=== PATIENT | male | born 1980 ===

== ENCOUNTER 2017-10-21 12:34 | Inpatient (IN) | payer OTHER ==
[2017-10-21 12:48] VITALS: BMI 27.1
--- NOTE | 2017-10-21 13:51 | C.PDOC ---
History Of Present Illness 37 y/o male present to the ED for evaluation of progressive RLQ pain for one week. He reports feeling chills. The patient denies any fever, nausea, vomiting , diarrhea or urinary symptoms. He also denies any recent travels. Time Seen by Provider: 10/21/17 13:14 Chief Complaint (Nursing): Abdominal Pain History/Exam Limitations: no limitations Onset/Duration Of Symptoms: Days Current Symptoms Are (Timing): Still Present Location Of Pain/Discomfort: RLQ Quality Of Discomfort: "Pain" Associated Symptoms: Chills. denies: Fever, Nausea, Vomiting, Diarrhea, Urinary Symptoms Recent travel outside of the [place]: No Past Medical History Reviewed: Historical Data, Nursing Documentation, Vital Signs Vital Signs: Last Vital Signs Temp 99.3 F 10/21/17 12:48 Pulse 80 10/21/17 12:48 Resp 18 10/21/17 12:48 BP 121/74 10/21/17 12:48 Pulse Ox 99 10/21/17 17:41 - Medical History PMH: No Chronic Diseases Surgical History: No Surg Hx Family History: States: Unknown Family Hx - Social History Hx Tobacco Use: Yes Hx Alcohol Use: Yes Hx Substance Use: No - Immunization History Hx Tetanus Toxoid Vaccination: No Hx Influenza Vaccination: No Hx Pneumococcal Vaccination: No Review Of Systems Except As Marked, All Systems Reviewed And Found Negative. Constitutional: Positive for: Chills. Negative for: Fever Gastrointestinal: Positive for: Abdominal Pain (RLQ). Negative for: Nausea, Vomiting, Diarrhea Physical Exam - Physical Exam Appears: Non-toxic, No Acute Distress Skin: Normal Color, Warm, Dry Head: Atraumatic, Normacephalic Eye(s): bilateral: Normal Inspection, PERRL, EOMI Ear(s): Bilateral: Normal Nose: Normal Oral Mucosa: Moist Chest: Symmetrical Cardiovascular: Rhythm Regular, No Murmur Respiratory: Normal Breath Sounds, No Rales, No Rhonchi, No Wheezing Gastrointestinal/Abdominal: Tenderness, No Guarding, No Rebound (To RLQ) Extremity: Bilateral: Atraumatic, Normal Color And Temperature, Normal ROM Neurological/Psych: Oriented x3, Normal Speech ED Course And Treatment - Laboratory Results Result Diagrams: 10/21/17 14:19 10/21/17 14:19 O2 Sat by Pulse Oximetry: 99 (RA) Pulse Ox Interpretation: Normal - CT Scan/US Abdomen & Pelvis Other Rad Studies (CT/US): Read By Radiologist, Radiology Report Reviewed CT/US Interpretation: IMPRESSION: Complicated perforated appendix with apparent distal abscess and regional inflammatory changes. Regional lymphadenopathy. Medical Decision Making Medical Decision Making: Assessment: Abdominal pain ( LQ) Plan: -CT Abd & Pelvis -CMP -Lipase -CBC -Morphine 2 mg -UA Disposition Discussed With Dr.: Harris Reeder Doctor Will See Patient In The: Hospital Counseled Patient/Family Regarding: Studies Performed, Diagnosis - Disposition Disposition: HOSPITALIZED Disposition Time: 17:18 Condition: FAIR - Clinical Impression Clinical Impression: Appendicitis - PA / PSYCHOLOGY DEPARTMENT CHAIR / Resident Statement MD/DO has reviewed & agrees with the documentation as recorded. - Scribe Statement The provider has reviewed the documentation as recorded by the Scribe (Hayde Mario) All medical record entries made by the Scribe were at my direction and personally dictated by me. I have reviewed the chart and agree that the record accurately reflects my personal performance of the history, physical exam, medical decision making, and the department course for this patient. I have also personally directed, reviewed, and agree with the discharge instructions and disposition.
[2017-10-21 14:22] LABS: BASO # 0.1 K/uL (0.0-0.2); BASO % 0.6 % (0.0-2.0); EOS % 0.2 % (0.0-4.0); HEMOGLOBIN 14.1 g/dL (12.0-18.0); LYMPH % 10.4 % (20.0-40.0); MEAN CORPUSCULAR HEMOGLOBIN 31.7 pg (27.0-31.0); MEAN CORPUSCULAR HGB CONC 35.2 g/dL (33.0-37.0); MEAN PLATELET VOLUME 8.2 fL (7.2-11.7); MONO # 0.7 K/uL (0.0-0.8); MONO % 7.2 % (0.0-10.0); NEUT # 8.1 K/uL (1.8-7.0); NEUT % 81.6 % (50.0-75.0); NRBC % 0.1 % (0.0-2.0); RBC 4.45 Mil/uL (4.40-5.90); RED CELL DISTRIBUTION WIDTH 13.3 % (11.5-14.5); WHITE BLOOD COUNT 9.9 K/uL (4.8-10.8)
[2017-10-21 14:30] LABS: SQUAMOUS EPITHIAL 1 /hpf (0-5); URINE BACTERIA RARE (<OCC); URINE BILIRUBIN NEGATIVE (NEGATIVE); URINE BLOOD 1+ (NEGATIVE); URINE CLARITY Hazy (Clear); URINE COLOR Amber (YELLOW); URINE GLUCOSE (UA) NORMAL (Normal); URINE LEUKOCYTE ESTERASE NEG Leu/uL (Negative); URINE PROTEIN 1+ mg/dL (NEGATIVE); URINE UROBILINOGEN NORMAL mg/dL (0.2-1.0)
[2017-10-21 14:35] LABS: ALB/GLOB RATIO 1.2 (1.0-2.1); ALBUMIN 4.6 g/dL (3.5-5.0); ALT/SGPT 117 U/L (21-72); AST/SGOT 27 U/L (17-59); BLOOD UREA NITROGEN 16 mg/dL (9-20); CALCIUM 9.3 mg/dl (8.6-10.4); GFR NON-AFRICAN AMERICAN > 60; LIPASE 23 U/L (23-300)
[2017-10-21] MEDS ORDERED: Iodixanol 320 mg/ml 150 ml Bottle IV ONE (15:42)
[2017-10-21] MEDS ORDERED: Piperacill/Tazo 3.375gm in Dex 3.375 GM/50 ML BAG IVPB STA (17:13)
[2017-10-21] MEDS ORDERED: Piperacillin/Tazobact 3.375 gm 100 ML IVPB ONE (17:49)
[2017-10-21 18:09] LABS: INR 1.2; PROTHROMBIN TIME 13.3 SECONDS (9.7-12.2)
--- NOTE | 2017-10-21 18:27 | CP.PCM.CON ---
History of Present Illness - History of Present Illness History of Present Illness: General surgery consult note for Dr. Huyen Jackson, PGY-2 Pt S & E at bedside at 1715. [facility] interpretor- Art #[id number] for Estonian. 37M w/no sig PMH consulted for RLQ ab pain x 1 week. Pt reports sudden onset of pain, radiates diffusely, baseline mild, but intermittently worsens, aggravated by changes in position. Tried Naproxen without alleviation. Admits to chills, slight dysuria. Denies N & V, fevers, diarrhea, constipation, hematuria, hematochezia, sore throat, chest pain, SOB, other complaints. In ED- CT abdomen w/findings of acute perforated complex appendicitis with abscess formation, 6 x 4.5 cm. Afebrile, no leukocytosis. PMH: Denies PSH: Denies All: NKDA SH: Admits to occasional ETOH use- 1-2 drinks/month, admits to occasional tobacco use- rare; denies illicit drug use FH: Non contributory PMD: Dr. Esparza Review of Systems - Review of Systems All systems: reviewed and no additional remarkable complaints except - Constitutional Constitutional: Chills. absent: Fever, Headache - EENT Ears: absent: Dizziness Nose/Mouth/Throat: absent: Sore Throat - Cardiovascular Cardiovascular: absent: Chest Pain - Respiratory Respiratory: absent: Cough - Gastrointestinal Gastrointestinal: Abdominal Pain. absent: Constipation, Diarrhea, Hematemesis, Hematochezia, Nausea, Vomiting - Genitourinary Genitourinary: Dysuria (mild). absent: Hematuria, Pyuria - Musculoskeletal Musculoskeletal: absent: Back Pain, Neck Pain - Integumentary Integumentary: absent: Rash - Neurological Neurological: absent: Weakness - Psychiatric Psychiatric: absent: Change in Appetite Past Patient History - Past Social History Smoking Status: Light Smoker < 10 Cigarettes Daily - PSYCHIATRIC Hx Substance Use: No - ANESTHESIA Hx Anesthesia: No Meds Allergies/Adverse Reactions: Allergies Allergy/AdvReac Type Severity Reaction Status Date / Time No Known Allergies Allergy Verified 10/21/17 12:48 Physical Exam - Constitutional Appears: Non-toxic, No Acute Distress - Head Exam Head Exam: ATRAUMATIC, NORMAL INSPECTION, NORMOCEPHALIC - Eye Exam Eye Exam: EOMI, Normal appearance - ENT Exam ENT Exam: Mucous Membranes Moist, Normal Exam - Neck Exam Neck exam: Positive for: Full Rom, Normal Inspection - Respiratory Exam Respiratory Exam: Clear to Auscultation Bilateral, NORMAL BREATHING PATTERN. absent: Rales, Rhonchi, Wheezes, Respiratory Distress - Cardiovascular Exam Cardiovascular Exam: REGULAR RHYTHM, +S1, +S2 - GI/Abdominal Exam GI & Abdominal Exam: Guarding (RLQ), Normal Bowel Sounds, Soft, Tenderness (RLQ) . absent: Distended, Mass, Rigid - Extremities Exam Extremities exam: Positive for: normal inspection. Negative for: tenderness - Neurological Exam Neurological exam: Alert, CN II-XII Intact, Oriented x3 - Psychiatric Exam Psychiatric exam: Normal Affect, Normal Mood - Skin Skin Exam: Dry, Intact, Normal Color, Warm Results - Vital Signs Recent Vital Signs: Last Vital Signs Temp 100.6 F H 10/21/17 18:00 Pulse 81 10/21/17 18:00 Resp 16 10/21/17 18:00 BP 113/62 10/21/17 18:00 Pulse Ox 97 10/21/17 18:00 - Labs Result Diagrams: 10/21/17 14:19 10/21/17 14:19 Labs: Laboratory Results - last 24 hr 10/21/17 10/21/17 10/21/17 14:19 14:19 14:19 WBC 9.9 RBC 4.45 Hgb 14.1 Hct 40.1 MCV 90.0 MCH 31.7 H MCHC 35.2 RDW 13.3 Plt Count 278 MPV 8.2 Neut % (Auto) 81.6 H Lymph % (Auto) 10.4 L [place] % (Auto) 7.2 Eos % (Auto) 0.2 Baso % (Auto) 0.6 Neut # (Auto) 8.1 H Lymph # (Auto) 1.0 [place] # (Auto) 0.7 Eos # (Auto) 0.0 Baso # (Auto) 0.1 PT INR APTT Sodium 141 Potassium 4.3 Chloride 100 Carbon Dioxide 26 Anion Gap 20 BUN 16 Creatinine 0.7 L Est GFR ( Amer) > 60 Est GFR (Non-Af Amer) > 60 Random Glucose 109 Calcium 9.3 Total Bilirubin 0.7 AST 27 ALT 117 H Alkaline Phosphatase 255 H Total Protein 8.5 H Albumin 4.6 Globulin 3.9 Albumin/Globulin Ratio 1.2 Lipase 23 Urine Color Mckayla Urine Clarity Hazy Urine pH 5.0 Ur Specific [place] 1.026 Urine Protein 1+ H Urine Glucose (UA) Normal Urine Ketones Negative Urine Blood 1+ H Urine Nitrate Negative Urine Bilirubin Negative Urine Urobilinogen Normal Ur Leukocyte Esterase Neg Urine WBC (Auto) 1 Urine RBC (Auto) 4 H Ur Squamous Epith Cells 1 Urine Bacteria Rare 10/21/17 17:57 WBC RBC Hgb Hct MCV MCH MCHC RDW Plt Count MPV Neut % (Auto) Lymph % (Auto) [place] % (Auto) Eos % (Auto) Baso % (Auto) Neut # (Auto) Lymph # (Auto) [place] # (Auto) Eos # (Auto) Baso # (Auto) PT 13.3 H INR 1.2 APTT 38 H Sodium Potassium Chloride Carbon Dioxide Anion Gap BUN Creatinine Est GFR ( Amer) Est GFR (Non-Af Amer) Random Glucose Calcium Total Bilirubin AST ALT Alkaline Phosphatase Total Protein Albumin Globulin Albumin/Globulin Ratio Lipase Urine Color Urine Clarity Urine pH Ur Specific [place] Urine Protein Urine Glucose (UA) Urine Ketones Urine Blood Urine Nitrate Urine Bilirubin Urine Urobilinogen Ur Leukocyte Esterase Urine WBC (Auto) Urine RBC (Auto) Ur Squamous Epith Cells Urine Bacteria Assessment & Plan - Assessment and Plan (Free Text) Assessment: 37M w/perforated complicated appendicitis w/abscess formation Plan: Admit to medical service Recommend IR drainage of abscess IV Abx Pain control IV fluids Monitor labs Serial abdominal exams Ok for diet Ok for activity as tolerated JAUN Jackson, PGY-2 - Date & Time Date: 10/21/17 Time: 17:25
--- NOTE | 2017-10-21 18:55 | CP.PCM.HP ---
<EjJerome ashley - Last Filed: 10/21/17 19:13> History of Present Illness - History of Present Illness History of Present Illness: PGY-[address] Reeder Patient is a 37 yo M with no PMHx who presents with worsening RLQ abdominal pain for 1 week. As per patient, the pain came about suddenly the past week, radiated diffusely and then localized to the RLQ, worsening with changes in position. He took naproxen for 3 days which alleviated the pain somewhat, but still there. Patient also endorses chills. No fevers, chest pain, palpitations, SOB, cough, nausea/vomiting/diarrhea/constipation. PMHx: Denies PSHx: Denies Allergies: NKDA Home Medications: None Social Hx: Admits to occasional alcoho use- 1-2 drinks/month, admits to occasional tobacco use- few cigarettes weekly; denies illicit drug use FHx: Mother-DM, Father-Depression PMD: Dr. Esparza Present on Admission - Present on Admission Any Indicators Present on Admission: No Review of Systems - Constitutional Constitutional: As Per HPI, Chills. absent: Anorexia, Excessive Sweating, Fatigue, Fever, Weight Loss, Weakness - EENT Eyes: As Per HPI. absent: Blurred Vision, Change in Vision, Pain, Loss of Vision - Cardiovascular Cardiovascular: As Per HPI. absent: Chest Pain, Chest Pain with Activity, Diaphoresis, Dyspnea, Dyspnea on Exertion, Palpitations, Radiating Pain - Respiratory Respiratory: As Per HPI. absent: Cough, Dyspnea, Hemoptysis, Dyspnea on Exertion, Wheezing, Stridor - Gastrointestinal Gastrointestinal: As Per HPI, Abdominal Pain (RLQ pain). absent: Bloating, Constipation, Diarrhea, Nausea, Vomiting - Musculoskeletal Musculoskeletal: As Per HPI. absent: Arthralgias, Joint Swelling, Muscle Weakness, Myalgias, Numbness, Tingling - Neurological Neurological: As Per HPI. absent: Dizziness, Numbness, Focal Weakness, Headaches, Radicular Pain, Weakness Past Patient History - Past Social History Smoking Status: Light Smoker < 10 Cigarettes Daily - PSYCHIATRIC Hx Substance Use: No - ANESTHESIA Hx Anesthesia: No Meds Allergies/Adverse Reactions: Allergies Allergy/AdvReac Type Severity Reaction Status Date / Time No Known Allergies Allergy Verified 10/21/17 12:48 Physical Exam - Constitutional Appears: Non-toxic, No Acute Distress - Head Exam Head Exam: ATRAUMATIC, NORMAL INSPECTION, NORMOCEPHALIC - Eye Exam Eye Exam: EOMI, Normal appearance Pupil Exam: NORMAL ACCOMODATION - ENT Exam ENT Exam: Mucous Membranes Moist, Normal Exam - Neck Exam Neck exam: Positive for: Normal Inspection - Respiratory Exam Respiratory Exam: Clear to Auscultation Bilateral, NORMAL BREATHING PATTERN. absent: Rales, Rhonchi, Wheezes - Cardiovascular Exam Cardiovascular Exam: REGULAR RHYTHM, +S1, +S2 - GI/Abdominal Exam GI & Abdominal Exam: Normal Bowel Sounds, Soft, Tenderness (TTP RLQ). absent: Distended, Firm, Guarding, Organomegaly, Rebound, Rigid - Back Exam Back exam: NORMAL INSPECTION - Neurological Exam Neurological exam: Alert, CN II-XII Intact, Oriented x3 - Psychiatric Exam Psychiatric exam: Normal Affect, Normal Mood - Skin Skin Exam: Dry, Intact, Normal Color, Warm Results - Vital Signs Recent Vital Signs: Last Vital Signs Temp 100.6 F H 10/21/17 18:00 Pulse 81 10/21/17 18:00 Resp 16 10/21/17 18:00 BP 113/62 10/21/17 18:00 Pulse Ox 97 10/21/17 18:00 - Labs Result Diagrams: 10/21/17 14:19 10/21/17 14:19 Labs: Laboratory Results - last 24 hr 10/21/17 10/21/17 10/21/17 14:19 14:19 14:19 WBC 9.9 RBC 4.45 Hgb 14.1 Hct 40.1 MCV 90.0 MCH 31.7 H MCHC 35.2 RDW 13.3 Plt Count 278 MPV 8.2 Neut % (Auto) 81.6 H Lymph % (Auto) 10.4 L [place] % (Auto) 7.2 Eos % (Auto) 0.2 Baso % (Auto) 0.6 Neut # (Auto) 8.1 H Lymph # (Auto) 1.0 [place] # (Auto) 0.7 Eos # (Auto) 0.0 Baso # (Auto) 0.1 PT INR APTT Sodium 141 Potassium 4.3 Chloride 100 Carbon Dioxide 26 Anion Gap 20 BUN 16 Creatinine 0.7 L Est GFR ( Amer) > 60 Est GFR (Non-Af Amer) > 60 Random Glucose 109 Calcium 9.3 Total Bilirubin 0.7 AST 27 ALT 117 H Alkaline Phosphatase 255 H Total Protein 8.5 H Albumin 4.6 Globulin 3.9 Albumin/Globulin Ratio 1.2 Lipase 23 Urine Color Mckayla Urine Clarity Hazy Urine pH 5.0 Ur Specific [place] 1.026 Urine Protein 1+ H Urine Glucose (UA) Normal Urine Ketones Negative Urine Blood 1+ H Urine Nitrate Negative Urine Bilirubin Negative Urine Urobilinogen Normal Ur Leukocyte Esterase Neg Urine WBC (Auto) 1 Urine RBC (Auto) 4 H Ur Squamous Epith Cells 1 Urine Bacteria Rare 10/21/17 17:57 WBC RBC Hgb Hct MCV MCH MCHC RDW Plt Count MPV Neut % (Auto) Lymph % (Auto) [place] % (Auto) Eos % (Auto) Baso % (Auto) Neut # (Auto) Lymph # (Auto) [place] # (Auto) Eos # (Auto) Baso # (Auto) PT 13.3 H INR 1.2 APTT 38 H Sodium Potassium Chloride Carbon Dioxide Anion Gap BUN Creatinine Est GFR ( Amer) Est GFR (Non-Af Amer) Random Glucose Calcium Total Bilirubin AST ALT Alkaline Phosphatase Total Protein Albumin Globulin Albumin/Globulin Ratio Lipase Urine Color Urine Clarity Urine pH Ur Specific [place] Urine Protein Urine Glucose (UA) Urine Ketones Urine Blood Urine Nitrate Urine Bilirubin Urine Urobilinogen Ur Leukocyte Esterase Urine WBC (Auto) Urine RBC (Auto) Ur Squamous Epith Cells Urine Bacteria Assessment & Plan - Assessment and Plan (Free Text) Assessment: 37 yo M with no PMHx presenting with worsening RLQ pain x 1 week, 2/2 perforated complicated appendicitis with abscess formation. Plan: 1. Perforated appendicitis w/ abscess formation - patient is afebrile, normal WBC - CT abdomen/pelvis: complicated perforated appendicitis with abscess formation , 6 x 4.5 cm Medications -Zosyn 3.375 q6 -Flagyl 500 mg PO q8 -Percocet 5 mg PO q6 PRN -NS @ 100cc/hr -UA -f/u UCx, BCx -Surgery (Dr. Cruz) on board -IR (Dr. Leo) on board 2. PPx, Diet, Disposition -VTE: SCDs -Regular diet -keep NPO Monday after midnight -f/u IR Monday for drainage Case discussed with Dr. Lilli Wall PGY-1 <Harris Reeder H - Last Filed: 10/21/17 19:22> Results - Vital Signs Recent Vital Signs: Last Vital Signs Temp 100.6 F H 10/21/17 18:00 Pulse 81 10/21/17 18:00 Resp 16 10/21/17 18:00 BP 113/62 10/21/17 18:00 Pulse Ox 97 10/21/17 18:00 - Labs Result Diagrams: 10/21/17 14:19 10/21/17 14:19 Labs: Laboratory Results - last 24 hr 10/21/17 10/21/17 10/21/17 14:19 14:19 14:19 WBC 9.9 RBC 4.45 Hgb 14.1 Hct 40.1 MCV 90.0 MCH 31.7 H MCHC 35.2 RDW 13.3 Plt Count 278 MPV 8.2 Neut % (Auto) 81.6 H Lymph % (Auto) 10.4 L [place] % (Auto) 7.2 Eos % (Auto) 0.2 Baso % (Auto) 0.6 Neut # (Auto) 8.1 H Lymph # (Auto) 1.0 [place] # (Auto) 0.7 Eos # (Auto) 0.0 Baso # (Auto) 0.1 PT INR APTT Sodium 141 Potassium 4.3 Chloride 100 Carbon Dioxide 26 Anion Gap 20 BUN 16 Creatinine 0.7 L Est GFR ( Amer) > 60 Est GFR (Non-Af Amer) > 60 Random Glucose 109 Calcium 9.3 Total Bilirubin 0.7 AST 27 ALT 117 H Alkaline Phosphatase 255 H Total Protein 8.5 H Albumin 4.6 Globulin 3.9 Albumin/Globulin Ratio 1.2 Lipase 23 Urine Color Mckayla Urine Clarity Hazy Urine pH 5.0 Ur Specific [place] 1.026 Urine Protein 1+ H Urine Glucose (UA) Normal Urine Ketones Negative Urine Blood 1+ H Urine Nitrate Negative Urine Bilirubin Negative Urine Urobilinogen Normal Ur Leukocyte Esterase Neg Urine WBC (Auto) 1 Urine RBC (Auto) 4 H Ur Squamous Epith Cells 1 Urine Bacteria Rare Blood Type Antibody Screen 10/21/17 10/21/17 17:57 17:57 WBC RBC Hgb Hct MCV MCH MCHC RDW Plt Count MPV Neut % (Auto) Lymph % (Auto) [place] % (Auto) Eos % (Auto) Baso % (Auto) Neut # (Auto) Lymph # (Auto) [place] # (Auto) Eos # (Auto) Baso # (Auto) PT 13.3 H INR 1.2 APTT 38 H Sodium Potassium Chloride Carbon Dioxide Anion Gap BUN Creatinine Est GFR ( Amer) Est GFR (Non-Af Amer) Random Glucose Calcium Total Bilirubin AST ALT Alkaline Phosphatase Total Protein Albumin Globulin Albumin/Globulin Ratio Lipase Urine Color Urine Clarity Urine pH Ur Specific [place] Urine Protein Urine Glucose (UA) Urine Ketones Urine Blood Urine Nitrate Urine Bilirubin Urine Urobilinogen Ur Leukocyte Esterase Urine WBC (Auto) Urine RBC (Auto) Ur Squamous Epith Cells Urine Bacteria Blood Type A POSITIVE Antibody Screen Negative Attending/Attestation - Attestation I have personally seen and examined this patient.: Yes I have fully participated in the care of the patient.: Yes I have reviewed all pertinent clinical information: Yes Notes (Text): 10/21/17 19:22 Medical attending: Patient was seen and examined by me, agrees the above note by medical and scientific illustrator. Patient was seen and examined by me in the ER hallway bed numbers 3. He was not in any acute distress when I saw him. As mentioned above in the resident note this gentleman has been having pain for about a week now. He said that initially occurred when he was asleep and woke up with the pain. He was initially in the right lower quadrant port that after 20 minutes it spread out to the epigastric area and since then has re-localized back to the right lower quadrant. He's been going around for it for about a week now and he's finally decided to come in. He denied ever having fevers, denied chills, denied nausea, denied vomiting. He also denied chest pain as well. He is only tried naproxen for pain. He had a CT scan done which as reported above by the medical and scientific illustrator shows that he has a ruptured area of the appendix looks like it's walled off were still waiting for the final read at this time. The patient does not have elevated white blood cell count he does not have a fever. There is only a left shift of 85% he said that he was able to walk around and walked into the ER. Regarding continue the IV Zosyn, IV Flagyl. Surgery explains that we should get IR to see if be willing to drain the area this coming Monday Thank you very much, Harris Reeder
[2017-10-21] MEDS: Sodium Chloride 0.9% 1,000 ML IV SCH (19:17)
[2017-10-21 19:27] VITALS: RESP 20
[2017-10-21] MEDS: Oxycodone/Acetaminophen 5/325 mg Tab PO PRN (20:08)
[2017-10-21] MEDS: Piperacill/Tazo 3.375gm in Dex 3.375 GM/50 ML BAG IVPB SCH ×2 (21:22→23:29)
[2017-10-22] MEDS: Oxycodone/Acetaminophen 5/325 mg Tab PO PRN (05:06)
[2017-10-22] MEDS: Piperacill/Tazo 3.375gm in Dex 3.375 GM/50 ML BAG IVPB SCH ×4 (05:30→23:56)
[2017-10-22] MEDS: Sodium Chloride 0.9% 1,000 ML IV SCH ×3 (05:31→17:40)
--- NOTE | 2017-10-22 07:51 | CP.PCM.PN ---
Subjective - Date & Time of Evaluation Date of Evaluation: 10/22/17 Time of Evaluation: 07:49 - Subjective Subjective: General Sx: Dr Cruz Pt S&E. Febrile on admission but has since resolved. No vitals since midnight , nursing asked to repeat please. Pt states pain has improved. Denies n/v, further fevers or chills. Abdominal tenderness improved. Tolerating oral intake. Objective - Vital Signs/Intake and Output Vital Signs (last 24 hours): Temp Pulse Resp BP Pulse Ox 98.7 F 78 20 104/61 95 10/22/17 05:15 10/22/17 00:56 10/22/17 00:56 10/22/17 00:56 10/22/17 00:56 Intake and Output: 10/22/17 10/22/17 06:59 18:59 Intake Total 600 1160 Output Total 300 Balance 600 860 - Medications Medications: Current Medications Piperacillin Sod/Tazobactam Sod (Zosyn 3.375 Gm Iv Premix) 3.375 gm in 50 mls @ 100 mls/hr IVPB Q6H JOSIAH PRN Reason: Protocol Last Admin: 10/22/17 05:30 Dose: 100 mls/hr Sodium Chloride (Sodium Chloride 0.9%) 1,000 mls @ 100 mls/hr IV .Q10H JOSIAH Last Admin: 10/22/17 05:31 Dose: 100 mls/hr Metronidazole (Flagyl) 500 mg PO Q8 JOSIAH PRN Reason: Protocol Last Admin: 10/22/17 05:06 Dose: 500 mg Morphine Sulfate (Morphine) 2 mg IVP Q4 PRN PRN Reason: Pain, Mild (1-3) Oxycodone/Acetaminophen (Percocet 5/325 Mg Tab) 1 tab PO Q6H PRN PRN Reason: Pain, moderate (4-7) Stop: 10/24/17 18:36 Last Admin: 10/22/17 05:06 Dose: 1 tab Pneumococcal Polyvalent Vaccine (Pneumovax 23 Vaccine) 0.5 ml IM .ONCE ONE Stop: 10/23/17 10:01 - Labs Labs: 10/21/17 14:19 10/21/17 14:19 PT 13.3 SECONDS (9.7-12.2) H 10/21/17 17:57 INR 1.2 10/21/17 17:57 APTT 38 SECONDS (21-34) H 10/21/17 17:57 - Constitutional Appears: Non-toxic, No Acute Distress - ENT Exam ENT Exam: Mucous Membranes Dry - Respiratory Exam Respiratory Exam: absent: Respiratory Distress - Cardiovascular Exam Cardiovascular Exam: REGULAR RHYTHM. absent: Tachycardia - GI/Abdominal Exam GI & Abdominal Exam: Tenderness (rLQ). absent: Distended, Soft, Mass, Pulsatile Mass, Rebound - Neurological Exam Neurological Exam: Alert - Psychiatric Exam Psychiatric exam: Normal Affect Assessment and Plan - Assessment and Plan (Free Text) Assessment: 37M with perforated appendicitis Plan: cont IV abx plan for IR evaluation for drainage diet downgraded to CLD incase IR can do today or incase pt condition worsens pain meds switched to IV for same reason cont IV hydration vitals q4h - monitor for progression to sepsis d/w Dr Anthony Hanson, PGY4
--- NOTE | 2017-10-22 09:20 | CP.PCM.PN ---
Subjective - Date & Time of Evaluation Date of Evaluation: 10/22/17 Time of Evaluation: 09:00 - Subjective Subjective: Patient was seen and examined by me. Still pending AM lab work He reported no acute events overnight. There were recorded some elevated temperatures noted. He reports still having the RLQ abdominal pain. No radiation of the pain. He reported normal urine, no BM this morning. Denied chest pain, denied shortness of breath, denied palpitations. He was changed over to liquid diet and IV pain medication. Continue on IV Zosyn and IV Flagyl. Objective - Vital Signs/Intake and Output Vital Signs (last 24 hours): Temp Pulse Resp BP Pulse Ox 98.5 F 76 20 117/67 96 10/22/17 08:00 10/22/17 08:00 10/22/17 08:00 10/22/17 08:00 10/22/17 08:00 Intake and Output: 10/22/17 10/22/17 06:59 18:59 Intake Total 600 1160 Output Total 300 Balance 600 860 - Medications Medications: Current Medications Piperacillin Sod/Tazobactam Sod (Zosyn 3.375 Gm Iv Premix) 3.375 gm in 50 mls @ 100 mls/hr IVPB Q6H JOSIAH PRN Reason: Protocol Last Admin: 10/22/17 05:30 Dose: 100 mls/hr Sodium Chloride (Sodium Chloride 0.9%) 1,000 mls @ 100 mls/hr IV .Q10H [facility] Last Admin: 10/22/17 05:31 Dose: 100 mls/hr Metronidazole (Flagyl) 500 mg PO Q8 JOSIAH PRN Reason: Protocol Last Admin: 10/22/17 05:06 Dose: 500 mg Morphine Sulfate (Morphine) 2 mg IVP Q4 PRN PRN Reason: Pain, Mild (1-3) Oxycodone/Acetaminophen (Percocet 5/325 Mg Tab) 1 tab PO Q6H PRN PRN Reason: Pain, moderate (4-7) Stop: 10/24/17 18:36 Last Admin: 10/22/17 05:06 Dose: 1 tab Pneumococcal Polyvalent Vaccine (Pneumovax 23 Vaccine) 0.5 ml IM .ONCE ONE Stop: 10/23/17 10:01 - Labs Labs: 10/21/17 14:19 10/21/17 14:19 PT 13.3 SECONDS (9.7-12.2) H 10/21/17 17:57 INR 1.2 10/21/17 17:57 APTT 38 SECONDS (21-34) H 10/21/17 17:57 - Constitutional Appears: Well, No Acute Distress - Head Exam Head Exam: NORMAL INSPECTION - Eye Exam Eye Exam: EOMI, Normal appearance - ENT Exam ENT Exam: Mucous Membranes Moist - Respiratory Exam Respiratory Exam: Clear to Ausculation Bilateral, NORMAL BREATHING PATTERN - Cardiovascular Exam Cardiovascular Exam: REGULAR RHYTHM - GI/Abdominal Exam GI & Abdominal Exam: Soft, Tenderness, Normal Bowel Sounds. absent: Distended, Firm, Guarding, Rigid - Neurological Exam Neurological Exam: Alert, Awake, Normal Gait Neuro motor strength exam: Left Upper Extremity: 5, Right Upper Extremity: 5 - Psychiatric Exam Psychiatric exam: Normal Affect, Normal Mood - Skin Skin Exam: Normal Color, Warm Assessment and Plan - Assessment and Plan (Free Text) Assessment: Assessment: 37 yo M with no PMHx presenting with worsening RLQ pain x 1 week, 2/2 perforated complicated appendicitis with abscess formation. Plan: 1. Perforated appendicitis w/ abscess formation 10/22: Overnight T max was 102, continue with the IV Zosyn and IV Flagyl and IVF. Pending IR evaluation of this area can be drained or not. Patient reports pain is controlled with the IV morphine. CT abdomen/pelvis: complicated perforated appendicitis with abscess formation, 6 x 4.5 cm Medications -Zosyn 3.375 q6 -Flagyl 500 mg PO q8 -Surgery (Dr. Cruz) on board -IR (Dr. Leo) on board 2. PPx, Diet, Disposition -VTE: SCDs -Regular diet -keep NPO Monday after midnight -f/u IR Monday for drainage
--- NOTE | 2017-10-22 09:25 | CT ---
Date of service: 10/21/2017 PROCEDURE: CT Abdomen and Pelvis with intravenous contrast HISTORY: Abdominal pain COMPARISON: None. TECHNIQUE: Multiple contiguous axial images were performed through the abdomen and pelvis with the use of intravenous contrast. Subsequently, sagittal and coronal reformatted images were obtained. Radiation dose: Total exam DLP = 359 mGy-cm. This CT exam was performed using one or more of the following dose reduction techniques: Automated exposure control, adjustment of the mA and/or kV according to patient size, and/or use of iterative reconstruction technique. FINDINGS: LOWER THORAX: Dependent atelectasis. LIVER: Hepatomegaly and fatty infiltration of the liver. GALLBLADDER AND BILE DUCTS: Unremarkable. PANCREAS: Unremarkable. No gross lesion or ductal dilatation. SPLEEN: Unremarkable. ADRENALS: Unremarkable. No mass. KIDNEYS AND URETERS: Unremarkable. No hydronephrosis. No solid mass. VASCULATURE: Unremarkable. No aortic aneurysm. BOWEL: See below. APPENDIX: Complicated perforated appendicitis with a rim enhancing 6 x 4.5 centimeter periappendiceal abscess containing bubbles of air. Segments of a fluid distended appendix identified. Regional lymphadenopathy. Thickening of the cecum. PERITONEUM: Unremarkable. No free fluid. No free air. LYMPH NODES: Unremarkable. No enlarged lymph nodes. BLADDER: Incomplete urinary bladder distention with prominent wall. Pericystic induration. Cystitis not excluded. Correlation with urinalysis. This may be reactive. REPRODUCTIVE: Unremarkable. Move with oral oval 0 0 move correct BONES: No acute fracture. OTHER FINDINGS: None. IMPRESSION: Complicated perforated appendicitis with a rim enhancing 6 x 4.5 centimeter periappendiceal abscess containing bubbles of air. Segments of a fluid distended appendix identified. Regional lymphadenopathy. Thickening of the cecum. Additional findings as above. These findings were preliminarily reported at 5:09 p.m. on 10/21/[address] Laura Cruz from [employer].
[2017-10-22 09:45] LABS: BASO % 0.2 % (0.0-2.0); EOS % 0.2 % (0.0-4.0); HEMOGLOBIN 13.3 g/dL (12.0-18.0); LYMPH # 1.1 K/uL (1.0-4.3); LYMPH % 10.2 % (20.0-40.0); MEAN CELL VOLUME 89.7 fL (80.0-94.0); MEAN CORPUSCULAR HEMOGLOBIN 31.3 pg (27.0-31.0); MEAN CORPUSCULAR HGB CONC 34.9 g/dL (33.0-37.0); MEAN PLATELET VOLUME 7.9 fL (7.2-11.7); MONO # 0.8 K/uL (0.0-0.8); NEUT # 8.5 K/uL (1.8-7.0); NEUT % 81.4 % (50.0-75.0); RBC 4.25 Mil/uL (4.40-5.90); WHITE BLOOD COUNT 10.4 K/uL (4.8-10.8)
[2017-10-22 10:37] LABS: ALB/GLOB RATIO 1.1 (1.0-2.1); ALBUMIN 3.9 g/dL (3.5-5.0); ALT/SGPT 95 U/L (21-72); AST/SGOT 39 U/L (17-59); CALCIUM 8.8 mg/dl (8.6-10.4); GFR NON-AFRICAN AMERICAN > 60
[2017-10-22 10:39] LABS: BLOOD UREA NITROGEN 16 mg/dL (9-20)
[2017-10-23] MEDS: Sodium Chloride 0.9% 1,000 ML IV SCH ×4 (01:28→21:27)
[2017-10-23] MEDS: Piperacill/Tazo 3.375gm in Dex 3.375 GM/50 ML BAG IVPB SCH ×4 (06:06→23:30)
[2017-10-23 07:44] LABS: BASO % 0.1 % (0.0-2.0); EOS % 0.2 % (0.0-4.0); LYMPH # 1.4 K/uL (1.0-4.3); MEAN CELL VOLUME 90.3 fL (80.0-94.0); MEAN CORPUSCULAR HEMOGLOBIN 30.3 pg (27.0-31.0); MEAN CORPUSCULAR HGB CONC 33.6 g/dL (33.0-37.0); MONO # 1.4 K/uL (0.0-0.8); MONO % 11.1 % (0.0-10.0); NEUT # 9.9 K/uL (1.8-7.0); NEUT % 77.6 % (50.0-75.0); RBC 4.3 Mil/uL (4.40-5.90); WHITE BLOOD COUNT 12.8 K/uL (4.8-10.8)
--- NOTE | 2017-10-23 07:44 | CP.PCM.PN ---
<Jerome Wall - Last Filed: 10/23/17 14:59> Subjective - Date & Time of Evaluation Date of Evaluation: 10/23/17 Time of Evaluation: 07:44 - Subjective Subjective: PGY-1 Medicine Progress Note for Dr. Donnelly Patient was seen and examined at bedside this SM, resting comfortably and in no acute distress. He endorses 3 watery BM overnight; not other acute events reported. He continues to complain of non-radiating RLQ abdominal pain. No fevers/chills, headaches, dizziness, chest pain, palpitations, nausea/vomiting, constipation, or dysuria. Objective - Vital Signs/Intake and Output Vital Signs (last 24 hours): Temp Pulse Resp BP Pulse Ox 100.1 F H 94 H 20 103/64 96 10/23/17 06:00 10/23/17 00:00 10/23/17 00:00 10/23/17 00:00 10/23/17 00:00 Intake and Output: 10/23/17 10/23/17 06:59 18:59 Intake Total 1110 Balance 1110 - Medications Medications: Current Medications Acetaminophen (Tylenol 325mg Tab) 650 mg PO Q6 PRN PRN Reason: Fever >100.4 F Last Admin: 10/22/17 23:56 Dose: 650 mg Piperacillin Sod/Tazobactam Sod (Zosyn 3.375 Gm Iv Premix) 3.375 gm in 50 mls @ 100 mls/hr IVPB Q6H JOSIAH PRN Reason: Protocol Last Admin: 10/23/17 06:06 Dose: 100 mls/hr Sodium Chloride (Sodium Chloride 0.9%) 1,000 mls @ 100 mls/hr IV .Q10H [facility] Last Admin: 10/23/17 03:58 Dose: 100 mls/hr Metronidazole (Flagyl) 500 mg PO Q8 JOSIAH PRN Reason: Protocol Last Admin: 10/22/17 21:19 Dose: 500 mg Morphine Sulfate (Morphine) 2 mg IVP Q4 PRN PRN Reason: Pain, Mild (1-3) Last Admin: 10/23/17 03:52 Dose: 2 mg Oxycodone/Acetaminophen (Percocet 5/325 Mg Tab) 1 tab PO Q6H PRN PRN Reason: Pain, moderate (4-7) Stop: 10/24/17 18:36 Last Admin: 10/22/17 05:06 Dose: 1 tab Pneumococcal Polyvalent Vaccine (Pneumovax 23 Vaccine) 0.5 ml IM .ONCE ONE Stop: 10/23/17 10:01 - Labs Labs: 10/22/17 09:35 10/22/17 09:35 PT 13.3 SECONDS (9.7-12.2) H 10/21/17 17:57 INR 1.2 10/21/17 17:57 APTT 38 SECONDS (21-34) H 10/21/17 17:57 - Constitutional Appears: Non-toxic, No Acute Distress - Head Exam Head Exam: ATRAUMATIC, NORMAL INSPECTION, NORMOCEPHALIC - Eye Exam Eye Exam: EOMI, Normal appearance Pupil Exam: NORMAL ACCOMODATION - ENT Exam ENT Exam: Normal Exam - Neck Exam Neck Exam: Normal Inspection - Respiratory Exam Respiratory Exam: Clear to Ausculation Bilateral, NORMAL BREATHING PATTERN. absent: Rales, Rhonchi, Wheezes - Cardiovascular Exam Cardiovascular Exam: REGULAR RHYTHM, +S1, +S2. absent: Gallop, Rubs, Murmur - GI/Abdominal Exam GI & Abdominal Exam: Soft, Tenderness (TTP RLQ, mild TTP RUQ), Normal Bowel Sounds. absent: Distended, Firm, Guarding, Rigid, Mass, Rebound - Extremities Exam Extremities Exam: Normal Capillary Refill, Normal Inspection. absent: Pedal Edema, Tenderness - Back Exam Back Exam: NORMAL INSPECTION. absent: CVA tenderness (L), CVA tenderness (R) - Neurological Exam Neurological Exam: Alert, Awake, CN II-XII Intact, Oriented x3 - Psychiatric Exam Psychiatric exam: Normal Affect, Normal Mood - Skin Skin Exam: Dry, Intact, Normal Color, Warm Assessment and Plan - Assessment and Plan (Free Text) Assessment: 37 yo M with no PMHx presenting with worsening RLQ pain x 1 week, 2/2 perforated complicated appendicitis with abscess formation. Plan: Perforated appendicitis w/ abscess formation -patient afebrile this AM, T 98.5 -Tmax 102.2 (10/22) -WBC 12.8 -CT abdomen/pelvis: complicated perforated appendicitis with abscess formation, 6 x 4.5 cm -vitals [id number] for progression to sepsis -Surgery recs (Dr. Cruz) appreciated -plan for IR evaluation for drainage -pain meds switched to IV (10/22) in case IR does procedure or pt condition worsens -f/u IR recs (Dr. Leo) -per phone call with Dr. Leo (10/23), pt likely to be sent to OR tomorrow Medications -Flagyl 500 mg PO q8 -Zosyn 3.375 mg IVP q6 -NS @ 100cc/hr -Tylenol 650 mg PO q6 prn -Morphine 2 mg IVP q4 prn PPx, Diet, Disposition -VTE: SCDs -Diet: keep NPO -Dispostion: f/u IR Monday for drainage Case discussed with Dr. Cony Wall DO, PGY-1 <Chavez Donnelly - Last Filed: 10/23/17 16:15> Objective - Vital Signs/Intake and Output Vital Signs (last 24 hours): Temp Pulse Resp BP Pulse Ox 98.5 F 84 20 106/60 95 10/23/17 08:17 10/23/17 08:17 10/23/17 08:17 10/23/17 08:17 10/23/17 08:17 Intake and Output: 10/23/17 10/23/17 06:59 18:59 Intake Total 1110 1750 Balance 1110 1750 - Medications Medications: Current Medications Acetaminophen (Tylenol 325mg Tab) 650 mg PO Q6 PRN PRN Reason: Fever >100.4 F Last Admin: 10/22/17 23:56 Dose: 650 mg Piperacillin Sod/Tazobactam Sod (Zosyn 3.375 Gm Iv Premix) 3.375 gm in 50 mls @ 100 mls/hr IVPB Q6H JOSIAH PRN Reason: Protocol Last Admin: 10/23/17 13:05 Dose: 100 mls/hr Sodium Chloride (Sodium Chloride 0.9%) 1,000 mls @ 100 mls/hr IV .Q10H [facility] Last Admin: 10/23/17 03:58 Dose: 100 mls/hr Metronidazole (Flagyl) 500 mg in 100 mls @ 100 mls/hr IVPB Q8H JOSIAH PRN Reason: Protocol Last Admin: 10/23/17 13:13 Dose: 100 mls/hr Morphine Sulfate (Morphine) 2 mg IVP Q4 PRN PRN Reason: Pain, Mild (1-3) Last Admin: 10/23/17 13:28 Dose: 2 mg Oxycodone/Acetaminophen (Percocet 5/325 Mg Tab) 1 tab PO Q6H PRN PRN Reason: Pain, moderate (4-7) Stop: 10/24/17 18:36 Last Admin: 10/22/17 05:06 Dose: 1 tab - Labs Labs: 10/23/17 07:26 10/23/17 07:26 PT 13.3 SECONDS (9.7-12.2) H 10/21/17 17:57 INR 1.2 10/21/17 17:57 APTT 38 SECONDS (21-34) H 10/21/17 17:57 Attending/Attestation - Attestation I have personally seen and examined this patient.: Yes I have fully participated in the care of the patient.: Yes I have reviewed all pertinent clinical information, including history, physical exam and plan: Yes Notes (Text): Seen and examined by me this morning. This is a 37 years old young patient admitted for perforated appendicitis and abscess . CT scan showed complicated perforated appendicitis with rim enhancing 6x 4.5 cm gabbi appendiceal abscess containing air. Has thickening of cecum He is on on Zosyn and flagyl. Having fever spikes last night had 102 F fever. On examination his abdomen is not distended,no diffuse tenderness. Guarding and tender right lower abdomen noted.follow cuotures.blood culture is negative x 24hrs We will continue antibiotics zosyn and flagyl.I will get Infectious disease consult from DR Dinero.Keep NPO. follow IR and surgery recommendation d/w Resident
[2017-10-23 08:17] LABS: ALB/GLOB RATIO 1.2 (1.0-2.1); ALT/SGPT 70 U/L (21-72); AST/SGOT 23 U/L (17-59); BLOOD UREA NITROGEN 10 mg/dL (9-20); CALCIUM 8.7 mg/dl (8.6-10.4); GFR NON-AFRICAN AMERICAN > 60
[2017-10-23] MEDS ORDERED: Pneumococcal 23-Valent Vaccine IM ONE (10:00)
--- NOTE | 2017-10-23 12:42 | CP.PCM.PN ---
Subjective - Date & Time of Evaluation Date of Evaluation: 10/23/17 Time of Evaluation: 07:30 - Subjective Subjective: PGY-1 general surgery note for Dr Cruz service Patient is seen and examined at bedside. Patient complains of constant pain in abdominal area, mostly happening from the sides and radiating towards midline of abdomen. Patient states pain gets better with medications. Patient denies fever, chills, nausea, vomiting. Patient got two loose bowel movements since this morning, but reports no blood in stool. Objective - Vital Signs/Intake and Output Vital Signs (last 24 hours): Temp Pulse Resp BP Pulse Ox 98.5 F 84 20 106/60 95 10/23/17 08:17 10/23/17 08:17 10/23/17 08:17 10/23/17 08:17 10/23/17 08:17 Intake and Output: 10/23/17 10/23/17 06:59 18:59 Intake Total 1110 950 Balance 1110 950 - Medications Medications: Current Medications Acetaminophen (Tylenol 325mg Tab) 650 mg PO Q6 PRN PRN Reason: Fever >100.4 F Last Admin: 10/22/17 23:56 Dose: 650 mg Piperacillin Sod/Tazobactam Sod (Zosyn 3.375 Gm Iv Premix) 3.375 gm in 50 mls @ 100 mls/hr IVPB Q6H JOSIAH PRN Reason: Protocol Last Admin: 10/23/17 06:06 Dose: 100 mls/hr Sodium Chloride (Sodium Chloride 0.9%) 1,000 mls @ 100 mls/hr IV .Q10H [facility] Last Admin: 10/23/17 03:58 Dose: 100 mls/hr Metronidazole (Flagyl) 500 mg in 100 mls @ 100 mls/hr IVPB Q8H JOSIAH PRN Reason: Protocol Morphine Sulfate (Morphine) 2 mg IVP Q4 PRN PRN Reason: Pain, Mild (1-3) Last Admin: 10/23/17 03:52 Dose: 2 mg Oxycodone/Acetaminophen (Percocet 5/325 Mg Tab) 1 tab PO Q6H PRN PRN Reason: Pain, moderate (4-7) Stop: 10/24/17 18:36 Last Admin: 10/22/17 05:06 Dose: 1 tab - Labs Labs: 10/23/17 07:26 10/23/17 07:26 PT 13.3 SECONDS (9.7-12.2) H 10/21/17 17:57 INR 1.2 10/21/17 17:57 APTT 38 SECONDS (21-34) H 10/21/17 17:57 - Constitutional Appears: Non-toxic, No Acute Distress - Head Exam Head Exam: ATRAUMATIC, NORMAL INSPECTION, NORMOCEPHALIC - Eye Exam Eye Exam: EOMI - ENT Exam ENT Exam: Mucous Membranes Moist, Normal Exam - Neck Exam Neck Exam: Full ROM, Normal Inspection - Respiratory Exam Respiratory Exam: NORMAL BREATHING PATTERN. absent: Accessory Muscle Use, Respiratory Distress - Cardiovascular Exam Cardiovascular Exam: REGULAR RHYTHM, +S1, +S2 - GI/Abdominal Exam GI & Abdominal Exam: Firm, Guarding, Tenderness, Normal Bowel Sounds. absent: Distended Additional comments: RLQ tenderness upon light palpation with guarding. RLQ firm, warm on touch. - Extremities Exam Extremities Exam: Full ROM, Normal Inspection - Back Exam Back Exam: NORMAL INSPECTION - Neurological Exam Neurological Exam: Alert, Awake, Oriented x3 - Psychiatric Exam Psychiatric exam: Normal Affect, Normal Mood - Skin Skin Exam: Normal Color, Warm Assessment and Plan - Assessment and Plan (Free Text) Assessment: 37 yo male with no past medical history admitted for Perforate appendicitis with 6 x 4.5 cm abscess Plan: - Patient on CLD - Patient will be NPO after midnight - Follow up IR consult - plan for IR drainage tomorrow 10/24 - Continue to monitor vital signs - cont pain medications and abx as indicated Plan discussed with Dr Anthony Renae, PGY-1
--- NOTE | 2017-10-23 12:52 | CP.PCM.CON ---
History of Present Illness - History of Present Illness History of Present Illness: seen and examined chart reviewed awaiting OR antibiotics reordered 37M w/no sig PMH consulted for RLQ ab pain x 1 week. Pt reports sudden onset of pain, radiates diffusely, baseline mild, but intermittently worsens, aggravated by changes in position. Tried Naproxen without alleviation. Admits to chills, slight dysuria. Denies N & V, fevers, diarrhea, constipation, hematuria, hematochezia, sore throat, chest pain, SOB, other complaints. In ED- CT abdomen w/findings of acute perforated complex appendicitis with abscess formation, 6 x 4.5 cm. Afebrile, no leukocytosis. PMH: Denies PSH: Denies All: NKDA SH: Admits to occasional ETOH use- 1-2 drinks/month, admits to occasional tobacco use- rare; denies illicit drug use FH: Non contributory PMD: Dr. Esparza Review of Systems - Review of Systems All systems: reviewed and no additional remarkable complaints except - Constitutional Constitutional: Chills. absent: Fever, Headache - EENT Ears: absent: Dizziness Nose/Mouth/Throat: absent: Sore Throat - Cardiovascular Cardiovascular: absent: Chest Pain - Respiratory Respiratory: absent: Cough - Gastrointestinal Gastrointestinal: Abdominal Pain. absent: Constipation, Diarrhea, Hematemesis, Hematochezia, Nausea, Vomiting - Genitourinary Genitourinary: Dysuria (mild). absent: Hematuria, Pyuria - Musculoskeletal Musculoskeletal: absent: Back Pain, Neck Pain - Integumentary Integumentary: absent: Rash - Neurological Neurological: absent: Weakness - Psychiatric Psychiatric: absent: Change in Appetite Past Patient History - Past Medical History & Family History Past Medical History?: Yes - Past Social History Smoking Status: Light Smoker < 10 Cigarettes Daily - MUSCULOSKELETAL/RHEUMATOLOGICAL Hx Falls: No - PSYCHIATRIC Hx Substance Use: No - ANESTHESIA Hx Anesthesia: No Meds Allergies/Adverse Reactions: Allergies Allergy/AdvReac Type Severity Reaction Status Date / Time No Known Allergies Allergy Verified 10/21/17 12:48 - Medications Medications: Current Medications Acetaminophen (Tylenol 325mg Tab) 650 mg PO Q6 PRN PRN Reason: Fever >100.4 F Last Admin: 10/22/17 23:56 Dose: 650 mg Piperacillin Sod/Tazobactam Sod (Zosyn 3.375 Gm Iv Premix) 3.375 gm in 50 mls @ 100 mls/hr IVPB Q6H JOSIAH PRN Reason: Protocol Last Admin: 10/23/17 06:06 Dose: 100 mls/hr Sodium Chloride (Sodium Chloride 0.9%) 1,000 mls @ 100 mls/hr IV .Q10H [facility] Last Admin: 10/23/17 03:58 Dose: 100 mls/hr Metronidazole (Flagyl) 500 mg in 100 mls @ 100 mls/hr IVPB Q8H JOSIAH PRN Reason: Protocol Morphine Sulfate (Morphine) 2 mg IVP Q4 PRN PRN Reason: Pain, Mild (1-3) Last Admin: 10/23/17 03:52 Dose: 2 mg Oxycodone/Acetaminophen (Percocet 5/325 Mg Tab) 1 tab PO Q6H PRN PRN Reason: Pain, moderate (4-7) Stop: 10/24/17 18:36 Last Admin: 10/22/17 05:06 Dose: 1 tab Physical Exam - Constitutional Appears: No Acute Distress - Head Exam Head Exam: NORMAL INSPECTION - Eye Exam Eye Exam: PERRL - ENT Exam ENT Exam: Mucous Membranes Dry - Neck Exam Neck exam: Negative for: Lymphadenopathy, Thyromegaly - Respiratory Exam Respiratory Exam: Clear to Auscultation Bilateral, NORMAL BREATHING PATTERN - Cardiovascular Exam Cardiovascular Exam: REGULAR RHYTHM, +S1, +S2 - GI/Abdominal Exam GI & Abdominal Exam: Diminished Bowel Sounds, Firm, Guarding, Rebound, Soft, Tenderness. absent: Rigid - Rectal Exam Rectal Exam: Deferred - Exam Exam: NORMAL INSPECTION - Extremities Exam Extremities exam: Negative for: pedal edema - Back Exam Back exam: absent: CVA tenderness (L), CVA tenderness (R) - Neurological Exam Neurological exam: Alert, CN II-XII Intact, Oriented x3, Reflexes Normal - Psychiatric Exam Psychiatric exam: Normal Mood - Skin Skin Exam: Dry Results - Vital Signs Recent Vital Signs: Last Vital Signs Temp 98.5 F 10/23/17 08:17 Pulse 84 10/23/17 08:17 Resp 20 10/23/17 08:17 BP 106/60 10/23/17 08:17 Pulse Ox 95 10/23/17 08:17 - Labs Result Diagrams: 10/23/17 07:26 10/23/17 07:26 Labs: Laboratory Results - last 24 hr 10/23/17 10/23/17 07:26 07:26 WBC 12.8 H RBC 4.30 L Hgb 13.0 Hct 38.8 MCV 90.3 MCH 30.3 MCHC 33.6 RDW 13.0 Plt Count 249 MPV 8.0 Neut % (Auto) 77.6 H Lymph % (Auto) 11.0 L [place] % (Auto) 11.1 H Eos % (Auto) 0.2 Baso % (Auto) 0.1 Neut # (Auto) 9.9 H Lymph # (Auto) 1.4 [place] # (Auto) 1.4 H Eos # (Auto) 0.0 Baso # (Auto) 0.0 Sodium 138 Potassium 4.1 Chloride 100 Carbon Dioxide 27 Anion Gap 15 BUN 10 Creatinine 0.8 Est GFR ( Amer) > 60 Est GFR (Non-Af Amer) > 60 Random Glucose 130 H Calcium 8.7 Phosphorus 2.9 Magnesium 2.0 Total Bilirubin 0.9 AST 23 ALT 70 Alkaline Phosphatase 244 H Total Protein 7.5 Albumin 4.0 Globulin 3.4 Albumin/Globulin Ratio 1.2 Assessment & Plan (1) Abscess Status: Acute (2) Appendicitis Status: Acute - Assessment and Plan (Free Text) Assessment: perf appendix for OR vs IR drainage cont IV antibiotics
[2017-10-23] MEDS: metroNIDAZOLE IV 500 mg/100 ml 500 MG/100 ML BAG IVPB SCH ×2 (13:13→21:26)
[2017-10-24] MEDS: metroNIDAZOLE IV 500 mg/100 ml 500 MG/100 ML BAG IVPB SCH ×3 (03:10→20:00)
[2017-10-24] MEDS: Piperacill/Tazo 3.375gm in Dex 3.375 GM/50 ML BAG IVPB SCH ×3 (05:30→17:58)
[2017-10-24] MEDS: Sodium Chloride 0.9% 1,000 ML IV SCH ×2 (05:48→16:45)
--- NOTE | 2017-10-24 08:51 | CP.PCM.PN ---
Subjective - Date & Time of Evaluation Date of Evaluation: 10/24/17 Time of Evaluation: 06:20 - Subjective Subjective: Pgy-1 general surgery note for Dr Cruz Patient is seen and examined at bedside. Patient complains of mild abdominal pain. Pain denies fevers, chills, nausea or vomiting. Patient is currently NPO and will be getting abscess drainage by Interventional radiology today. Objective - Vital Signs/Intake and Output Vital Signs (last 24 hours): Temp Pulse Resp BP Pulse Ox 100.4 F H 80 20 109/63 97 10/24/17 08:13 10/24/17 08:00 10/24/17 08:00 10/24/17 08:00 10/24/17 08:00 Intake and Output: 10/24/17 10/24/17 06:59 18:59 Intake Total 1050 Balance 1050 - Medications Medications: Current Medications Acetaminophen (Tylenol 325mg Tab) 650 mg PO Q6 PRN PRN Reason: Fever >100.4 F Last Admin: 10/24/17 08:13 Dose: 650 mg Piperacillin Sod/Tazobactam Sod (Zosyn 3.375 Gm Iv Premix) 3.375 gm in 50 mls @ 100 mls/hr IVPB Q6H [facility] PRN Reason: Protocol Last Admin: 10/24/17 05:30 Dose: 100 mls/hr Sodium Chloride (Sodium Chloride 0.9%) 1,000 mls @ 100 mls/hr IV .Q10H [facility] Last Admin: 10/24/17 05:48 Dose: 100 mls/hr Metronidazole (Flagyl) 500 mg in 100 mls @ 100 mls/hr IVPB Q8H [facility] PRN Reason: Protocol Last Admin: 10/24/17 03:10 Dose: 100 mls/hr Morphine Sulfate (Morphine) 2 mg IVP Q4 PRN PRN Reason: Pain, Mild (1-3) Last Admin: 10/24/17 06:09 Dose: 2 mg Oxycodone/Acetaminophen (Percocet 5/325 Mg Tab) 1 tab PO Q6H PRN PRN Reason: Pain, moderate (4-7) Stop: 10/24/17 18:36 Last Admin: 10/22/17 05:06 Dose: 1 tab - Labs Labs: 10/23/17 07:26 10/23/17 07:26 PT 13.3 SECONDS (9.7-12.2) H 10/21/17 17:57 INR 1.2 10/21/17 17:57 APTT 38 SECONDS (21-34) H 10/21/17 17:57 - Constitutional Appears: No Acute Distress - Head Exam Head Exam: ATRAUMATIC, NORMAL INSPECTION - Eye Exam Eye Exam: EOMI, Normal appearance - ENT Exam ENT Exam: Mucous Membranes Moist, Normal Exam - Neck Exam Neck Exam: Full ROM, Normal Inspection - Respiratory Exam Respiratory Exam: NORMAL BREATHING PATTERN. absent: Accessory Muscle Use, Respiratory Distress - GI/Abdominal Exam GI & Abdominal Exam: Soft, Tenderness - Back Exam Back Exam: NORMAL INSPECTION - Neurological Exam Neurological Exam: Alert, Awake, Oriented x3 - Psychiatric Exam Psychiatric exam: Normal Affect, Normal Mood - Skin Skin Exam: Intact, Normal Color, Warm Assessment and Plan - Assessment and Plan (Free Text) Assessment: 37 yo male with no past medical history admitted for Perforate appendicitis with 6 x 4.5 cm abscess Plan: - NPO today - OK to resume diet after IR procedure - follow ID recs on abx - currently on vanco and zosyn -continue to monitor for vitals Plan discussed with Dr Anthony Renae, PGY-1
[2017-10-24] MEDS ORDERED: Absorbable Gelatin Sponge Size 12-7 ONE (09:44)
[2017-10-24] MEDS ORDERED: Lidocaine 2% MPF (5 ml) Inj ONE (09:55)
[2017-10-24] MEDS ORDERED: Midazolam 2 MG/2 ML VIAL ONE (10:03)
[2017-10-24] MEDS ORDERED: Propofol 10 mg/ml Inj (20 ML) ONE (10:11)
--- NOTE | 2017-10-24 10:28 | PCM.SURG1 ---
Surgeon's Initial Post Op Note - Surgeon's Notes Surgeon: Lance Celestin MD Loss Prevention Coordinator: NONE Type of Anesthesia: IV Sedation Pre-Operative Diagnosis: Appendiceal abscess Operative Findings: CT showed a large RLQ abscess consistent with perforated appendicitis. Post-Operative Diagnosis: Appendiceal abscess Operation Performed: CT guided drainage of and placement of a 8.5 fr drainage catheter within the abscess. Specimen/Specimens Removed: 10 cc of purulent drainage Estimated Blood Loss: EBL {In ML}: 1 Blood Products Given: N/A Drains Used: Juan Manuel Martinez Post-Op Condition: Fair Date of Surgery/Procedure: 10/24/17 Time of Surgery/Procedure: 10:25
--- NOTE | 2017-10-24 11:59 | CP.PCM.PN ---
Subjective - Date & Time of Evaluation Date of Evaluation: 10/24/17 Time of Evaluation: 09:00 - Subjective Subjective: CT guided drainage of and placement of a 8.5 fr drainage catheter within the abscess. Objective - Vital Signs/Intake and Output Vital Signs (last 24 hours): Temp Pulse Resp BP Pulse Ox 100.4 F H 80 20 109/63 97 10/24/17 08:13 10/24/17 08:00 10/24/17 08:00 10/24/17 08:00 10/24/17 08:00 Intake and Output: 10/24/17 10/24/17 06:59 18:59 Intake Total 1050 Balance 1050 - Medications Medications: Current Medications Acetaminophen (Tylenol 325mg Tab) 650 mg PO Q6 PRN PRN Reason: Fever >100.4 F Last Admin: 10/24/17 08:13 Dose: 650 mg Piperacillin Sod/Tazobactam Sod (Zosyn 3.375 Gm Iv Premix) 3.375 gm in 50 mls @ 100 mls/hr IVPB Q6H [facility] PRN Reason: Protocol Last Admin: 10/24/17 05:30 Dose: 100 mls/hr Sodium Chloride (Sodium Chloride 0.9%) 1,000 mls @ 100 mls/hr IV .Q10H [facility] Last Admin: 10/24/17 05:48 Dose: 100 mls/hr Metronidazole (Flagyl) 500 mg in 100 mls @ 100 mls/hr IVPB Q8H [facility] PRN Reason: Protocol Last Admin: 10/24/17 11:18 Dose: 100 mls/hr Morphine Sulfate (Morphine) 2 mg IVP Q4 PRN PRN Reason: Pain, Mild (1-3) Last Admin: 10/24/17 06:09 Dose: 2 mg Oxycodone/Acetaminophen (Percocet 5/325 Mg Tab) 1 tab PO Q6H PRN PRN Reason: Pain, moderate (4-7) Stop: 10/24/17 18:36 Last Admin: 10/22/17 05:06 Dose: 1 tab - Labs Labs: 10/23/17 07:26 10/23/17 07:26 PT 13.3 SECONDS (9.7-12.2) H 10/21/17 17:57 INR 1.2 10/21/17 17:57 APTT 38 SECONDS (21-34) H 10/21/17 17:57 - Constitutional Appears: Non-toxic, Chronically Ill - Head Exam Head Exam: NORMOCEPHALIC - Eye Exam Eye Exam: PERRL - ENT Exam ENT Exam: Mucous Membranes Dry - Neck Exam Neck Exam: absent: Lymphadenopathy - Respiratory Exam Respiratory Exam: Decreased Breath Sounds - Cardiovascular Exam Cardiovascular Exam: REGULAR RHYTHM - GI/Abdominal Exam GI & Abdominal Exam: Distended, Soft - Rectal Exam Rectal Exam: Deferred - Exam Exam: NORMAL INSPECTION - Extremities Exam Extremities Exam: absent: Pedal Edema - Back Exam Back Exam: absent: CVA tenderness (L), CVA tenderness (R) - Neurological Exam Neurological Exam: Alert, Awake, Oriented x3 Assessment and Plan - Assessment and Plan (Free Text) Assessment: CT guided drainage of and placement of a 8.5 fr drainage catheter within the abscess. cont iv then PO antibiotics
--- NOTE | 2017-10-24 14:58 | CP.PCM.PN ---
<Jerome Wall - Last Filed: 10/24/17 14:51> Subjective - Date & Time of Evaluation Date of Evaluation: 10/24/17 Time of Evaluation: 11:45 - Subjective Subjective: PGY-1 Medicine Progress Note for Dr. Donnelly Patient seen and examined at bedside, resting comfortably s/p CT guided drainage of and placement of a 8.5 fr drainage catheter within the abscess. Per patient, abdominal pain is improved. No fevers/chill, headaches, dizziness, chest pain, palpitations, sob, cough, nausea/vomiting/diarrhea/constipation, dysuria, or changes in stool. Objective - Vital Signs/Intake and Output Vital Signs (last 24 hours): Temp Pulse Resp BP Pulse Ox 98.6 F 80 20 109/63 97 10/24/17 09:13 10/24/17 08:00 10/24/17 08:00 10/24/17 08:00 10/24/17 08:00 Intake and Output: 10/24/17 10/24/17 06:59 18:59 Intake Total 1050 840 Output Total 125 Balance 1050 715 - Medications Medications: Current Medications Acetaminophen (Tylenol 325mg Tab) 650 mg PO Q6 PRN PRN Reason: Fever >100.4 F Last Admin: 10/24/17 08:13 Dose: 650 mg Piperacillin Sod/Tazobactam Sod (Zosyn 3.375 Gm Iv Premix) 3.375 gm in 50 mls @ 100 mls/hr IVPB Q6H [facility] PRN Reason: Protocol Last Admin: 10/24/17 12:37 Dose: 100 mls/hr Sodium Chloride (Sodium Chloride 0.9%) 1,000 mls @ 100 mls/hr IV .Q10H [facility] Last Admin: 10/24/17 05:48 Dose: 100 mls/hr Metronidazole (Flagyl) 500 mg in 100 mls @ 100 mls/hr IVPB Q8H [facility] PRN Reason: Protocol Last Admin: 10/24/17 11:18 Dose: 100 mls/hr Morphine Sulfate (Morphine) 2 mg IVP Q4 PRN PRN Reason: Pain, Mild (1-3) Last Admin: 10/24/17 06:09 Dose: 2 mg Oxycodone/Acetaminophen (Percocet 5/325 Mg Tab) 1 tab PO Q6H PRN PRN Reason: Pain, moderate (4-7) Stop: 10/24/17 18:36 Last Admin: 10/22/17 05:06 Dose: 1 tab - Labs Labs: 10/23/17 07:26 10/23/17 07:26 PT 13.3 SECONDS (9.7-12.2) H 10/21/17 17:57 INR 1.2 10/21/17 17:57 APTT 38 SECONDS (21-34) H 10/21/17 17:57 - Constitutional Appears: Non-toxic, No Acute Distress - Head Exam Head Exam: ATRAUMATIC, NORMAL INSPECTION, NORMOCEPHALIC - Eye Exam Eye Exam: EOMI, Normal appearance - ENT Exam ENT Exam: Mucous Membranes Moist, Normal Exam - Neck Exam Neck Exam: Normal Inspection - Respiratory Exam Respiratory Exam: Clear to Ausculation Bilateral, NORMAL BREATHING PATTERN. absent: Rales, Rhonchi, Wheezes, Stridor - Cardiovascular Exam Cardiovascular Exam: REGULAR RHYTHM, +S1, +S2 - GI/Abdominal Exam GI & Abdominal Exam: Soft, Tenderness (Mild TTP around NATASHA drain site. ), Normal Bowel Sounds. absent: Distended, Firm, Guarding, Rigid, Organomegaly, Rebound Additional comments: NATASHA drain in place, clean/dry/intact; 10 cc of purulent drainage. - Extremities Exam Extremities Exam: Normal Capillary Refill, Normal Inspection. absent: Pedal Edema, Tenderness - Back Exam Back Exam: NORMAL INSPECTION - Neurological Exam Neurological Exam: Alert, Awake, Oriented x3 - Psychiatric Exam Psychiatric exam: Normal Affect, Normal Mood - Skin Skin Exam: Dry, Intact, Normal Color, Warm Assessment and Plan - Assessment and Plan (Free Text) Assessment: 37 yo M with no PMHx presenting with worsening RLQ pain x 1 week, 2/2 perforated complicated appendicitis with abscess formation. S/P CT guided drainage of and placement of a 8.5 fr drainage catheter within the abscess. Plan: Perforated appendicitis w/ abscess formation--s/p IR drainage -CT abdomen/pelvis: complicated perforated appendicitis with abscess formation, 6 x 4.5 cm -IR (Dr. Leo) recs appreciated -CT guided drainage of and placement of a 8.5 fr drainage catheter within the abscess (10/24) -10 cc purulent drainage (10/24) -Surgery recs (Dr. Cruz) appreciated -ok to resume diet -follow ID recs on Abx -currently on vanco and zosyn -ID recs (Dr. Dinero) recs appreciated -continue IV, then PO Abx Medications -Flagyl 500 mg PO q8 -Zosyn 3.375 mg IVP q6 -NS @ 100cc/hr -Tylenol 650 mg PO q6 prn -Morphine 2 mg IVP q4 prn PPx, Diet, Disposition -VTE: SCDs -Diet: regular Case discussed with Dr. Cony Wall DO, PGY-1 <Chavez Donnelly - Last Filed: 10/24/17 18:00> Objective - Vital Signs/Intake and Output Vital Signs (last 24 hours): Temp Pulse Resp BP Pulse Ox 98.9 F 65 20 100/61 97 10/24/17 16:00 10/24/17 16:00 10/24/17 16:00 10/24/17 16:00 10/24/17 16:00 Intake and Output: 10/24/17 10/24/17 06:59 18:59 Intake Total 1050 840 Output Total 125 Balance 1050 715 - Medications Medications: Current Medications Acetaminophen (Tylenol 325mg Tab) 650 mg PO Q6 PRN PRN Reason: Fever >100.4 F Last Admin: 10/24/17 08:13 Dose: 650 mg Piperacillin Sod/Tazobactam Sod (Zosyn 3.375 Gm Iv Premix) 3.375 gm in 50 mls @ 100 mls/hr IVPB Q6H [facility] PRN Reason: Protocol Last Admin: 10/24/17 12:37 Dose: 100 mls/hr Sodium Chloride (Sodium Chloride 0.9%) 1,000 mls @ 100 mls/hr IV .Q10H [facility] Last Admin: 10/24/17 16:45 Dose: 100 mls/hr Metronidazole (Flagyl) 500 mg in 100 mls @ 100 mls/hr IVPB Q8H [facility] PRN Reason: Protocol Last Admin: 10/24/17 11:18 Dose: 100 mls/hr Morphine Sulfate (Morphine) 2 mg IVP Q4 PRN PRN Reason: Pain, Mild (1-3) Last Admin: 09/11/18 06:09 Dose: 2 mg Oxycodone/Acetaminophen (Percocet 5/325 Mg Tab) 1 tab PO Q6H PRN PRN Reason: Pain, moderate (4-7) Stop: 10/24/17 18:36 Last Admin: 10/22/17 05:06 Dose: 1 tab - Labs Labs: 10/23/17 07:26 10/23/17 07:26 PT 13.3 SECONDS (9.7-12.2) H 10/21/17 17:57 INR 1.2 10/21/17 17:57 APTT 38 SECONDS (21-34) H 10/21/17 17:57 Attending/Attestation - Attestation I have personally seen and examined this patient.: Yes I have fully participated in the care of the patient.: Yes I have reviewed all pertinent clinical information, including history, physical exam and plan: Yes Notes (Text): Seen and examined,s/p IR drainage fever spikes noted,continue antibiotics,follow abscess c/s d/w DR Dinero Discussed with the resident and I agree with the documentation of the assessment and the plan
[2017-10-25] MEDS: Sodium Chloride 0.9% 1,000 ML IV SCH ×5 (02:45→22:30)
[2017-10-25] MEDS: metroNIDAZOLE IV 500 mg/100 ml 500 MG/100 ML BAG IVPB SCH ×3 (03:32→20:00)
[2017-10-25] MEDS: Piperacill/Tazo 3.375gm in Dex 3.375 GM/50 ML BAG IVPB SCH ×4 (06:58→18:05)
[2017-10-25 09:01] LABS: BASO % 0.3 % (0.0-2.0); EOS # 0.1 K/uL (0.0-0.7); EOS % 1.1 % (0.0-4.0); INR 1.4; LYMPH # 1.7 K/uL (1.0-4.3); LYMPH % 31.5 % (20.0-40.0); MEAN CORPUSCULAR HEMOGLOBIN 30.2 pg (27.0-31.0); MEAN CORPUSCULAR HGB CONC 33.2 g/dL (33.0-37.0); MEAN PLATELET VOLUME 8.4 fL (7.2-11.7); MONO # 0.4 K/uL (0.0-0.8); MONO % 6.4 % (0.0-10.0); NEUT # 3.4 K/uL (1.8-7.0); NEUT % 60.7 % (50.0-75.0); PROTHROMBIN TIME 15.4 SECONDS (9.7-12.2); RBC 3.98 Mil/uL (4.40-5.90); RED CELL DISTRIBUTION WIDTH 13.1 % (11.5-14.5); WHITE BLOOD COUNT 5.5 K/uL (4.8-10.8)
[2017-10-25 09:32] LABS: BLOOD UREA NITROGEN 14 mg/dL (9-20); GFR NON-AFRICAN AMERICAN > 60
--- NOTE | 2017-10-25 09:35 | CP.PCM.PN ---
<Jerome Wall - Last Filed: 10/25/17 13:54> Subjective - Date & Time of Evaluation Date of Evaluation: 10/25/17 Time of Evaluation: 09:34 - Subjective Subjective: PGY-1 Medicine Progress Note for Dr. Donnelly Patient seen and examined at bedside, resting comfortably s/p CT guided drainage of and placement of a 8.5 fr drainage catheter within the abscess. Per patient, abdominal pain resolved with soreness at insertion site. No fevers/ chill, headaches, dizziness, chest pain, palpitations, sob, cough, nausea/ vomiting/diarrhea/constipation, dysuria, or changes in stool. Objective - Vital Signs/Intake and Output Vital Signs (last 24 hours): Temp Pulse Resp BP Pulse Ox 98.5 F 60 20 100/61 96 10/25/17 08:01 10/25/17 08:01 10/25/17 08:01 10/25/17 08:01 10/25/17 08:01 Intake and Output: 10/25/17 10/25/17 06:59 18:59 Intake Total 1720 Output Total 60 Balance 1660 - Medications Medications: Current Medications Acetaminophen (Tylenol 325mg Tab) 650 mg PO Q6 PRN PRN Reason: Fever >100.4 F Last Admin: 10/24/17 08:13 Dose: 650 mg Piperacillin Sod/Tazobactam Sod (Zosyn 3.375 Gm Iv Premix) 3.375 gm in 50 mls @ 100 mls/hr IVPB Q6H [facility] PRN Reason: Protocol Last Admin: 10/25/17 06:58 Dose: 100 mls/hr Sodium Chloride (Sodium Chloride 0.9%) 1,000 mls @ 100 mls/hr IV .Q10H [facility] Last Admin: 10/25/17 09:27 Dose: 100 mls/hr Metronidazole (Flagyl) 500 mg in 100 mls @ 100 mls/hr IVPB Q8H [facility] PRN Reason: Protocol Last Admin: 10/25/17 03:32 Dose: 100 mls/hr Morphine Sulfate (Morphine) 2 mg IVP Q4 PRN PRN Reason: Pain, Mild (1-3) Last Admin: 10/24/17 23:53 Dose: 2 mg - Labs Labs: 10/25/17 08:45 10/25/17 08:45 PT 15.4 SECONDS (9.7-12.2) H 10/25/17 08:45 INR 1.4 10/25/17 08:45 APTT 38 SECONDS (21-34) H 10/25/17 08:45 - Constitutional Appears: Non-toxic, No Acute Distress - Head Exam Head Exam: ATRAUMATIC, NORMAL INSPECTION, NORMOCEPHALIC - Eye Exam Eye Exam: EOMI, Normal appearance Pupil Exam: NORMAL ACCOMODATION - ENT Exam ENT Exam: Mucous Membranes Moist, Normal Exam - Neck Exam Neck Exam: Normal Inspection - Respiratory Exam Respiratory Exam: Clear to Ausculation Bilateral, NORMAL BREATHING PATTERN. absent: Rales, Rhonchi, Wheezes - Cardiovascular Exam Cardiovascular Exam: REGULAR RHYTHM, +S1, +S2 - GI/Abdominal Exam GI & Abdominal Exam: Soft, Normal Bowel Sounds Additional comments: NATASHA drain in place, clean/dry/intact; 185 cc of purulent drainage. - Extremities Exam Extremities Exam: Normal Inspection - Back Exam Back Exam: NORMAL INSPECTION - Neurological Exam Neurological Exam: Alert, Awake, Normal Gait, Oriented x3 - Psychiatric Exam Psychiatric exam: Normal Affect, Normal Mood - Skin Skin Exam: Dry, Intact, Normal Color, Warm Assessment and Plan - Assessment and Plan (Free Text) Assessment: 37 yo M with no PMHx presenting with worsening RLQ pain x 1 week, 2/2 perforated complicated appendicitis with abscess formation. S/P CT guided drainage of and placement of a 8.5 fr drainage catheter within the abscess. Plan: Perforated appendicitis w/ abscess formation--s/p IR drainage -CT abdomen/pelvis: complicated perforated appendicitis with abscess formation, 6 x 4.5 cm -f/u Body fluid cx -continue to monitor vitals for fever spikes -IR (Dr. Leo) recs appreciated -CT guided drainage of and placement of a 8.5 fr drainage catheter within the abscess (10/24) -10 cc purulent drainage (10/24) -Surgery recs (Dr. Cruz) appreciated -pt cleared from surgical perspective -d/c with drain in place -f/u outpatient with Dr. Cruz within 1 week for NATASHA removal -f/u outpatient surgery clinic for interval appendectomy within 4 months -ID recs (Dr. Dinero) recs appreciated -continue IV, then PO Abx Medications -Flagyl 500 mg PO q8 -Zosyn 3.375 mg IVP q6 -NS @ 100cc/hr -Tylenol 650 mg PO q6 prn -Morphine 2 mg IVP q4 prn PPx, Diet, Disposition -VTE: SCDs -Diet: regular Case discussed with Dr. Cony Wall DO, PGY-1 <Chavez Donnelly - Last Filed: 10/27/17 15:46> Objective - Vital Signs/Intake and Output Vital Signs (last 24 hours): Temp Pulse Resp BP Pulse Ox 98.1 F 52 L 20 111/68 96 10/26/17 17:03 10/26/17 17:03 10/26/17 17:03 10/26/17 17:03 10/26/17 17:03 - Labs Labs: 10/26/17 06:43 10/26/17 06:43 PT 15.4 SECONDS (9.7-12.2) H 10/25/17 08:45 INR 1.4 10/25/17 08:45 APTT 38 SECONDS (21-34) H 10/25/17 08:45 Attending/Attestation - Attestation I have personally seen and examined this patient.: Yes I have fully participated in the care of the patient.: Yes I have reviewed all pertinent clinical information, including history, physical exam and plan: Yes Notes (Text): Seen and examined by me. His pain is better Has drain in place. D/W surgery team. Recommending to discharge with the drain and out pt follow up to remove the drain. No fever spikes we will follow culture of the abscess Assessment and the plan discussed with the resident
--- NOTE | 2017-10-25 12:39 | CP.PCM.PN ---
Subjective - Date & Time of Evaluation Date of Evaluation: 10/25/17 Time of Evaluation: 12:39 - Subjective Subjective: PGY-1 gen surg note for Dr Cruz Patient is seen and examined at bedside. Patient reports his pain has improved since yesterday. Reports no acute events overnight. Patient complains of mild pain on the right side where the drain is located when patient shifts position while lying in bed. Patient is tolerating regular diet. Patient is OOB but not ambulating. Patients had 2 episodes of loose BM. Patient denies fever, chills, nausea or vomiting. FLORI drainage output is 185 ml Objective - Vital Signs/Intake and Output Vital Signs (last 24 hours): Temp Pulse Resp BP Pulse Ox 98.5 F 60 20 100/61 96 10/25/17 08:01 10/25/17 08:01 10/25/17 08:01 10/25/17 08:01 10/25/17 08:01 Intake and Output: 10/25/17 10/25/17 06:59 18:59 Intake Total 1720 Output Total 60 Balance 1660 - Medications Medications: Current Medications Acetaminophen (Tylenol 325mg Tab) 650 mg PO Q6 PRN PRN Reason: Fever >100.4 F Last Admin: 10/24/17 08:13 Dose: 650 mg Piperacillin Sod/Tazobactam Sod (Zosyn 3.375 Gm Iv Premix) 3.375 gm in 50 mls @ 100 mls/hr IVPB Q6H [facility] PRN Reason: Protocol Last Admin: 10/25/17 11:30 Dose: 100 mls/hr Sodium Chloride (Sodium Chloride 0.9%) 1,000 mls @ 100 mls/hr IV .Q10H [facility] Last Admin: 10/25/17 09:27 Dose: 100 mls/hr Metronidazole (Flagyl) 500 mg in 100 mls @ 100 mls/hr IVPB Q8H [facility] PRN Reason: Protocol Last Admin: 10/25/17 10:59 Dose: 100 mls/hr Morphine Sulfate (Morphine) 2 mg IVP Q4 PRN PRN Reason: Pain, Mild (1-3) Last Admin: 10/24/17 23:53 Dose: 2 mg - Labs Labs: 10/25/17 08:45 10/25/17 08:45 PT 15.4 SECONDS (9.7-12.2) H 10/25/17 08:45 INR 1.4 10/25/17 08:45 APTT 38 SECONDS (21-34) H 10/25/17 08:45 - Constitutional Appears: Well, Non-toxic, No Acute Distress - Head Exam Head Exam: ATRAUMATIC, NORMAL INSPECTION, NORMOCEPHALIC - Eye Exam Eye Exam: EOMI, Normal appearance - ENT Exam ENT Exam: Mucous Membranes Moist, Normal Exam - Neck Exam Neck Exam: Full ROM, Normal Inspection - Respiratory Exam Respiratory Exam: Clear to Ausculation Bilateral. absent: Accessory Muscle Use , Respiratory Distress - GI/Abdominal Exam GI & Abdominal Exam: Soft. absent: Distended, Tenderness Additional comments: left upper and lower quadrant cool to touch FLORI drain on right lower quadrant, draining SS fluid. dressing covering tube is clean/dry/intact - Extremities Exam Extremities Exam: Full ROM, Normal Inspection - Back Exam Back Exam: NORMAL INSPECTION - Neurological Exam Neurological Exam: Alert, Awake, Oriented x3 - Psychiatric Exam Psychiatric exam: Normal Affect, Normal Mood - Skin Skin Exam: Intact, Normal Color Assessment and Plan - Assessment and Plan (Free Text) Assessment: 37 year old male with ruptured appendicitis with abscess s/p CT guided abscess drainage and placement flori drain Plan: - patient clear to discharge as per surgery standpoint - follow up medicine recs for discharge - awaiting abdominal fluid culture - patient to continue regular diet - continue pain medication as needed - encourage OOB and ambulation - follow up drainage output Plan to discuss with Dr Anthony Renae, PGY-1
--- NOTE | 2017-10-25 15:38 | CP.PCM.PN ---
Subjective - Date & Time of Evaluation Date of Evaluation: 10/25/17 Time of Evaluation: 07:00 - Subjective Subjective: OR cultures pending tolerating IV rx Objective - Vital Signs/Intake and Output Vital Signs (last 24 hours): Temp Pulse Resp BP Pulse Ox 98.5 F 60 20 100/61 96 10/25/17 08:01 10/25/17 08:01 10/25/17 08:01 10/25/17 08:01 10/25/17 08:01 Intake and Output: 10/25/17 10/25/17 06:59 18:59 Intake Total 1720 1160 Output Total 60 10 Balance 1660 1150 - Medications Medications: Current Medications Acetaminophen (Tylenol 325mg Tab) 650 mg PO Q6 PRN PRN Reason: Fever >100.4 F Last Admin: 10/24/17 08:13 Dose: 650 mg Piperacillin Sod/Tazobactam Sod (Zosyn 3.375 Gm Iv Premix) 3.375 gm in 50 mls @ 100 mls/hr IVPB Q6H [facility] PRN Reason: Protocol Last Admin: 10/25/17 11:30 Dose: 100 mls/hr Sodium Chloride (Sodium Chloride 0.9%) 1,000 mls @ 100 mls/hr IV .Q10H [facility] Last Admin: 10/25/17 14:53 Dose: Not Given Metronidazole (Flagyl) 500 mg in 100 mls @ 100 mls/hr IVPB Q8H [facility] PRN Reason: Protocol Last Admin: 10/25/17 10:59 Dose: 100 mls/hr Morphine Sulfate (Morphine) 2 mg IVP Q4 PRN PRN Reason: Pain, Mild (1-3) Last Admin: 10/24/17 23:53 Dose: 2 mg - Labs Labs: 10/25/17 08:45 10/25/17 08:45 PT 15.4 SECONDS (9.7-12.2) H 10/25/17 08:45 INR 1.4 10/25/17 08:45 APTT 38 SECONDS (21-34) H 10/25/17 08:45 - Constitutional Appears: Non-toxic, Chronically Ill - Head Exam Head Exam: NORMOCEPHALIC - Eye Exam Eye Exam: PERRL - ENT Exam ENT Exam: Mucous Membranes Dry - Neck Exam Neck Exam: absent: Lymphadenopathy - Respiratory Exam Respiratory Exam: Decreased Breath Sounds - Cardiovascular Exam Cardiovascular Exam: REGULAR RHYTHM - GI/Abdominal Exam GI & Abdominal Exam: Distended, Soft. absent: Tenderness - Rectal Exam Rectal Exam: Deferred - Exam Exam: NORMAL INSPECTION - Extremities Exam Extremities Exam: absent: Pedal Edema - Back Exam Back Exam: absent: CVA tenderness (L), CVA tenderness (R) - Neurological Exam Neurological Exam: Alert, Awake Assessment and Plan (1) Abscess Status: Acute (2) Appendicitis Status: Acute - Assessment and Plan (Free Text) Assessment: cont IV then PO rx await OR cultures follow up imaging
[2017-10-26] MEDS: Piperacill/Tazo 3.375gm in Dex 3.375 GM/50 ML BAG IVPB SCH ×3 (00:25→11:55)
[2017-10-26] MEDS: metroNIDAZOLE IV 500 mg/100 ml 500 MG/100 ML BAG IVPB SCH ×2 (03:43→11:57)
[2017-10-26 07:14] LABS: BASO % 0.5 % (0.0-2.0); EOS # 0.1 K/uL (0.0-0.7); EOS % 2.2 % (0.0-4.0); HEMOGLOBIN 11.8 g/dL (12.0-18.0); LYMPH # 1.9 K/uL (1.0-4.3); LYMPH % 39.8 % (20.0-40.0); MEAN CELL VOLUME 91.4 fL (80.0-94.0); MEAN CORPUSCULAR HEMOGLOBIN 31.1 pg (27.0-31.0); MEAN CORPUSCULAR HGB CONC 34.1 g/dL (33.0-37.0); MEAN PLATELET VOLUME 8.4 fL (7.2-11.7); MONO # 0.4 K/uL (0.0-0.8); MONO % 7.8 % (0.0-10.0); NEUT # 2.3 K/uL (1.8-7.0); NEUT % 49.7 % (50.0-75.0); RBC 3.8 Mil/uL (4.40-5.90); RED CELL DISTRIBUTION WIDTH 13.2 % (11.5-14.5); WHITE BLOOD COUNT 4.6 K/uL (4.8-10.8)
[2017-10-26 07:54] LABS: BLOOD UREA NITROGEN 11 mg/dL (9-20); CALCIUM 9.1 mg/dl (8.6-10.4); GFR NON-AFRICAN AMERICAN > 60
--- NOTE | 2017-10-26 12:47 | CT ---
PROCEDURE: Date of procedure: 10/24/2017 Procedure: 1. Pelvic abscess drainage with CT guidance, CPT 68259 Medications: The patient received IV sedation administered by anesthesiologist Radiation: 421.03 mGy-cm HISTORY: Perforated appendicitis with periappendiceal abscess. TECHNIQUE: Following informed consent procedure time-out, non contrast CT was performed which showed a complex right lower abdominal collection. The skin localizer was placed on the patient's abdomen and a repeat CT scan performed. The skin was marked, prepped, and draped in the usual sterile fashion. Under CT guidance, a iTherX drainage catheter was advanced into the collection. Upon return of purulent drainage, the catheter exchanged over an 035 guidewire and the tract was dilated to accommodate a 8.5 Tamazight pigtail drainage catheter formed within the collection. The position of the drainage catheter was confirmed with repeat CT scan. 10 cubic centimeters of purulent drainage was removed and sent for culture and sensitivity. The catheter was secured the patient's skin. A dressing was applied. IMPRESSION: CT-guided abscess drainage and placement of an 8.5 Tamazight drainage catheter with right abdominal abscess. The fluid specimen was sent for culture and sensitivity.
--- NOTE | 2017-10-26 14:50 | CP.PCM.DIS ---
Provider - Provider Date of Admission: 10/21/17 17:14 Attending physician: Chavez Donnelly MD Time Spent in preparation of Discharge (in minutes): 40 Hospital Course - Lab Results Lab Results: Micro Results 10/24/17 10:29 Abdominal Fluid Gram Stain - Final 10/24/17 10:29 Abdominal Fluid Body Fluid Culture - Preliminary Gram Negative Anthony 10/21/17 20:30 Blood-Venous Blood Culture - Preliminary NO GROWTH AFTER 4 DAYS 10/21/17 20:00 Blood-Venous Blood Culture - Preliminary NO GROWTH AFTER 4 DAYS 10/22/17 08:55 Urine Urine Culture - Final No Growth (<1,000 CFU/ML) Most Recent Lab Values WBC 4.6 K/uL (4.8-10.8) L 10/26/17 06:43 RBC 3.80 Mil/uL (4.40-5.90) L 10/26/17 06:43 Hgb 11.8 g/dL (12.0-18.0) L 10/26/17 06:43 Hct 34.7 % (35.0-51.0) L 10/26/17 06:43 MCV 91.4 fL (80.0-94.0) 10/26/17 06:43 MCH 31.1 pg (27.0-31.0) H 10/26/17 06:43 MCHC 34.1 g/dL (33.0-37.0) 10/26/17 06:43 RDW 13.2 % (11.5-14.5) 10/26/17 06:43 Plt Count 313 K/uL (130-400) 10/26/17 06:43 MPV 8.4 fL (7.2-11.7) 10/26/17 06:43 Neut % (Auto) 49.7 % (50.0-75.0) L 10/26/17 06:43 Lymph % (Auto) 39.8 % (20.0-40.0) 10/26/17 06:43 [place] % (Auto) 7.8 % (0.0-10.0) 10/26/17 06:43 Eos % (Auto) 2.2 % (0.0-4.0) 10/26/17 06:43 Baso % (Auto) 0.5 % (0.0-2.0) 10/26/17 06:43 Neut # (Auto) 2.3 K/uL (1.8-7.0) 10/26/17 06:43 Lymph # (Auto) 1.9 K/uL (1.0-4.3) 10/26/17 06:43 [place] # (Auto) 0.4 K/uL (0.0-0.8) 10/26/17 06:43 Eos # (Auto) 0.1 K/uL (0.0-0.7) 10/26/17 06:43 Baso # (Auto) 0.0 K/uL (0.0-0.2) 10/26/17 06:43 PT 15.4 SECONDS (9.7-12.2) H 10/25/17 08:45 INR 1.4 10/25/17 08:45 APTT 38 SECONDS (21-34) H 10/25/17 08:45 Sodium 142 mmol/L (132-148) 10/26/17 06:43 Potassium 4.4 mmol/L (3.6-5.2) 10/26/17 06:43 Chloride 104 mmol/L (98-107) 10/26/17 06:43 Carbon Dioxide 27 mmol/L (22-30) 10/26/17 06:43 Anion Gap 15 (10-20) 10/26/17 06:43 BUN 11 mg/dL (9-20) 10/26/17 06:43 Creatinine 0.8 mg/dL (0.8-1.5) 10/26/17 06:43 Est GFR ( Amer) > 60 10/26/17 06:43 Est GFR (Non-Af Amer) > 60 10/26/17 06:43 Random Glucose 116 mg/dL (75-110) H 10/26/17 06:43 Calcium 9.1 mg/dl (8.6-10.4) 10/26/17 06:43 Phosphorus 2.9 mg/dL (2.5-4.5) 10/23/17 07:26 Magnesium 2.0 mg/dL (1.6-2.3) 10/23/17 07:26 Total Bilirubin 0.9 mg/dL (0.2-1.3) 10/23/17 07:26 AST 23 U/L (17-59) 10/23/17 07:26 ALT 70 U/L (21-72) 10/23/17 07:26 Alkaline Phosphatase 244 U/L (38-126) H 10/23/17 07:26 Total Protein 7.5 g/dL (6.3-8.3) 10/23/17 07:26 Albumin 4.0 g/dL (3.5-5.0) 10/23/17 07:26 Globulin 3.4 gm/dL (2.2-3.9) 10/23/17 07:26 Albumin/Globulin Ratio 1.2 (1.0-2.1) 10/23/17 07:26 Lipase 23 U/L (23-300) 10/21/17 14:19 Urine Color Mckayla (YELLOW) 10/21/17 14:19 Urine Clarity Hazy (Clear) 10/21/17 14:19 Urine pH 5.0 (5.0-8.0) 10/21/17 14:19 Ur Specific [place] 1.026 (1.003-1.030) 10/21/17 14:19 Urine Protein 1+ mg/dL (NEGATIVE) H 10/21/17 14:19 Urine Glucose (UA) Normal mg/dL (Normal) 10/21/17 14:19 Urine Ketones Negative mg/dL (NEGATIVE) 10/21/17 14:19 Urine Blood 1+ (NEGATIVE) H 10/21/17 14:19 Urine Nitrate Negative (NEGATIVE) 10/21/17 14:19 Urine Bilirubin Negative (NEGATIVE) 10/21/17 14:19 Urine Urobilinogen Normal mg/dL (0.2-1.0) 10/21/17 14:19 Ur Leukocyte Esterase Neg [place]/uL (Negative) 10/21/17 14:19 Urine WBC (Auto) 1 /hpf (0-5) 10/21/17 14:19 Urine RBC (Auto) 4 /hpf (0-3) H 10/21/17 14:19 Ur Squamous Epith Cells 1 /hpf (0-5) 10/21/17 14:19 Urine Bacteria Rare (<OCC) 10/21/17 14:19 C. difficile Ag & Toxin Negative (NEGATIVE) 10/23/17 14:51 Blood Type A POSITIVE 10/21/17 17:57 Antibody Screen Negative 10/21/17 17:57 - Hospital Course Hospital Course: Mr. French is a 37 year old male with no past medical history who presented to the ED on 10/21 with worsening right lower quadrant abdominal pain for 1 week. As per patient the pain came about suddenly the past week, radiated diffusely and then localized to the right lower quadrant, worsening with changes in position. He took naproxen for 3 days which alleviated the pain somewhat, but still there. He also endorsed chills. No fevers, chest pain, palpitations, SOB, cough, nausea/vomiting/diarrhea/constipation upon admission. CT adomen/pelvis was ordered and showed complicated perforated appendicitis with abscess formation, 6 x 4.5cm. UA, urine culture, blood cultures x2 were unremarkable. Surgery (Dr. Cruz) and IR (Dr. Leo) were consulted for possible drainage. Patient was started on Zosyn 3.375 gm q6, Fagyl 500 mg PO q8 and Percocet 5mg PO q6 PRN for pain. C-diff Ag & toxin were ordered due to 3 episodes of diarrhea overnight, which came back negative. CT-guided drainage of and placement of a 8.5 uzbek drainage catheter within the abscess was performed successfully with no complications, 10 cc of purulent drainage obtained (10/24). NATASHA bulb drain in place continued to drain serosanguinous fluid while patient remained on the floor, 60cc over the past 24 hours. Body fluid culture (10/24) of the drainage showed no growth after 24 hours. ID was consulted (Dr. Dinero), who recommended continued IV antibiotics with switch to PO when ready for discharge. The patient is hemodynamically stable, remained afebrile over 48 hours, and has no leukocytosis. He is medically stable for discharge, as per Dr. Donnelly. Patient is instructed to take the following medications, as prescribed: Ciprofloxacin 500 mg twice daily for 7 days Flagyl 500 mg three times a day for 7 days Patient will go home with NATASHA drain in place. Please follow up with surgery (Dr. Cruz) in outpatient office for removal of drain within 1 week of discharge. Please call to schedule an appointment: Dr. Willy Cruz [id number] [address] Patient may also follow up at [facility] within 1-2 weeks of discharge. If symptoms persist or worsen, please return to ED. The following is a summary of hospital course. For full detail, please refer to EMR. Discharge Exam - Head Exam Head Exam: ATRAUMATIC, NORMAL INSPECTION, NORMOCEPHALIC - Eye Exam Eye Exam: EOMI, Normal appearance Pupil Exam: NORMAL ACCOMODATION - ENT Exam ENT Exam: Mucous Membranes Moist, Normal Exam - Neck Exam Neck exam: Normal Inspection - Respiratory Exam Respiratory Exam: Clear to PA & Lateral, NORMAL BREATHING PATTERN, UNREMARKABLE. absent: Rales, Rhonchi, Wheezes, Respiratory Distress, Stridor - Cardiovascular Exam Cardiovascular Exam: REGULAR RHYTHM, +S1, +S2 - GI/Abdominal Exam GI & Abdominal Exam: Normal Bowel Sounds, Soft. absent: Distended, Firm, Guarding, Rebound, Rigid, Tenderness Additional comments: NATASHA drain in place, clean/dry/intact - Extremities Exam Extremities exam: normal capillary refill, normal inspection, pedal pulses present - Back Exam Back exam: NORMAL INSPECTION - Neurological Exam Neurological exam: Alert, CN II-XII Intact, Normal Gait, Oriented x3, Reflexes Normal - Psychiatric Exam Psychiatric exam: Normal Affect, Normal Mood - Skin Skin Exam: Dry, Intact, Normal Color, Warm Discharge Plan - Discharge Medications Prescriptions: Ciprofloxacin/Ciprofloxa HCl [Cipro Xr] 500 mg PO BID #14 ter Metronidazole [Flagyl] 500 mg PO TID #21 tab - Follow Up Plan Condition: FAIR Disposition: HOME/ ROUTINE Additional Instructions: Patient is medically stable for discharge, as per Dr. Donnelly. Patient is instructed to take the following medications, as prescribed: Ciprofloxacin 500 mg twice daily for 7 days Flagyl 500 mg three times a day for 7 days Patient will go home with NATASHA drain in place. Please follow up with surgery (Dr. Cruz) in outpatient office for removal of drain within 1 week of discharge. Please call to schedule an appointment: Dr. Willy Cruz [address] [place] [phone] If symptoms persist or worsen, please return to ED. Take care and be well. El paciente es mdicamente estable para el cee, segn el Dr. Donnelly. El paciente debe jermaine los siguientes medicamentos segn lo recetado: Ciprofloxacina 500 mg dos veces al da gerson 7 denney Flagyl 500 mg mallory veces al da gerson 7 denney El paciente se ir a casa con el drenaje NATASHA en garrido lugar. Realice un seguimiento con la ciruga (Dr. Cruz) en la consulta externa para la extraccin del drenaje dentro de la semana posterior al cee. Favor de llamar para hacer nikia roslyn: Dr. Willy Cruz [id number] [address] Si los sntomas persisten o empeoran, regrese a ED. Cudate y mantente yvonne. Referrals: Willy Cruz MD [Staff Provider] -
[2017-10-26 17:04] VITALS: BP 111/68; PULSE 52; TEMP 98.1; O2SAT 96
== END 2017-10-26 17:25 | disposition home or self-care (01) | DRG 895 ==
LOC: C.ER 12:34 → C.9E 17:14 → C.3T 17:52
PROVIDERS: ADMIT Internal Medicine; ATTEND Internal Medicine
PROC: 0W9G30Z Drainage of Peritoneal Cavity with Drainage Device, Percutaneous Approach (ICD-10-PCS; principal; 2017-10-24)
DX: K35.2 Acute appendicitis with generalized peritonitis (principal); F17.210 Nicotine dependence, cigarettes, uncomplicated; Z83.3 Family history of diabetes mellitus